=== PATIENT | male | born 1965 | race Caucasian/White ===

== ENCOUNTER 2018-09-14 10:06 | Outpatient (REF) | payer SELFPAY ==
[2018-09-14 12:26] LABS: Anion Gap 5.1 mmol/L (3-11); BUN 14 mg/dL (7-18); CO2 28.9 mmol/L (21.0-32.0); CREATININE 0.94 mg/dL (0.70-1.30); Calcium 9.1 mg/dL (8.5-10.1); Chloride 103 mmol/L (98-107); Cholesterol 235 mg/dL (50-200); Glucose 197 mg/dL (70-100); HDL Cholesterol 26 mg/dL (40-60); LDL CHOLESTEROL 194 mg/dL (<100); Potassium 4.7 mmol/L (3.5-5.1); Sodium 137 mmol/L (136-145); Triglyceride 131 mg/dL (30-150)
[2018-09-14 12:33] LABS: COMMENT (LAB VIEW ONLY) 265.91 mg/dL; Microalb ug/mg Crea 6.2 ug/mg Cr
== END 2018-09-14 10:26 ==
LOC: LBN 10:06
PROVIDERS: PCP Internal Medicine; Visit Provider Internal Medicine
DX: E78.00 Pure hypercholesterolemia, unspecified (principal); I10 Essential (primary) hypertension; E11.9 Type 2 diabetes mellitus without complications
CPT/HCPCS: 80048; 80061; 83721; 82043; 82570

== ENCOUNTER 2020-01-24 03:49 | Outpatient (CLI) | payer SELFPAY ==
[2020-01-24 07:35] LABS: Hemoglobin A1C 9.8 % (3.8-5.6)
[2020-01-24 09:01] LABS: ALT 33 U/L (16-63); AST 12 U/L (15-37); Albumin 3.9 g/dL (3.4-5.0); Alkaline Phosphatase 152 U/L (46-116); Anion Gap 11.2 mmol/L (3-11); BUN 13 mg/dL (7-18); CO2 23.8 mmol/L (21.0-32.0); CREATININE 0.81 mg/dL (0.70-1.30); Calcium 9.2 mg/dL (8.5-10.1); Calculated LDL 146 mg/dL (<100); Chloride 101 mmol/L (98-107); Cholesterol 252 mg/dL (<200); Glucose 331 mg/dL (74-106); HDL Cholesterol 27 mg/dL (40-60); Potassium 4.4 mmol/L (3.5-5.1); Sodium 136 mmol/L (136-145); Total Protein 7.4 g/dL (6.4-8.2); Triglyceride 398 mg/dL (<150)
[2020-01-24 09:12] LABS: COMMENT (LAB VIEW ONLY) 134.98 mg/dL; Microalb ug/mg Crea 8.3 ug/mg Cr
== END 2020-01-24 04:09 ==
PROVIDERS: PCP Nurse Practitioner; Visit Provider Nurse Practitioner
DX: E11.9 Type 2 diabetes mellitus without complications (principal); E78.00 Pure hypercholesterolemia, unspecified
CPT/HCPCS: 36415; 80053; 80061; 82043; 82570; 83036

== ENCOUNTER 2020-10-29 21:29 | Outpatient (REF) | payer MEDICAID, SELFPAY ==
[2020-11-02 18:57] LABS: COVID-19 RT-PCR Result NEGATIVE (Negative)
== END 2020-10-29 21:49 ==
LOC: NCHCN 21:29
PROVIDERS: PCP Nurse Practitioner; Visit Provider Physician Assistant
DX: J02.9 Acute pharyngitis, unspecified (principal); Z11.59 Encounter for screening for other viral diseases
CPT/HCPCS: U0003; 87070

== ENCOUNTER 2021-04-01 16:12 | Outpatient (REF) | payer MEDICAID, SELFPAY ==
[2021-04-03 16:07] LABS: COVID-19 RT-PCR UVMMC Result Negative (Negative)
== END 2021-04-01 16:13 | disposition home or self-care (01) ==
LOC: LBN 16:12
PROVIDERS: PCP Nurse Practitioner; Visit Provider Physician Assistant
DX: Z20.822 Contact with and (suspected) exposure to COVID-19 (principal)
CPT/HCPCS: U0003

== ENCOUNTER 2021-04-02 21:56 | Outpatient (CLI) | payer MEDICAID, SELFPAY ==
--- NOTE | 2021-04-02 09:15 | DI.RAD_ITS ---
Exam(s) XR CHEST 2V PA LATERAL EXAM: XR CHEST 2V PA LATERAL CLINICAL HISTORY: cough, r/o pneumonia, R05 TECHNIQUE: 2D digital imaging was performed. COMPARISON: No exams were available for comparison FINDINGS: The heart is not enlarged. The lungs are clear and well expanded. No pleural effusion seen. Mediastin al contours appear intact. IMPRESSION: Normal chest. RADIATION DOSE DELIVERED: Total DLP
== END 2021-04-02 22:16 ==
PROVIDERS: PCP Nurse Practitioner; Visit Provider Physician Assistant
DX: R05 Cough (principal)
CPT/HCPCS: 71046

== ENCOUNTER 2021-09-12 16:07 | Outpatient (REF) | payer MEDICAID, SELFPAY ==
[2021-09-12 18:03] LABS: ALT 34 U/L (16-63); AST 13 U/L (15-37); Albumin 3.7 g/dL (3.4-5.0); Alkaline Phosphatase 134 U/L (46-116); Anion Gap 10.5 mmol/L (3-11); BUN 10 mg/dL (7-18); CO2 25.5 mmol/L (21.0-32.0); CREATININE 0.8 mg/dL (0.70-1.30); Calcium 9.1 mg/dL (8.5-10.1); Calculated LDL 182 mg/dL (<100); Chloride 102 mmol/L (98-107); Cholesterol 255 mg/dL (<200); Glucose 225 mg/dL (74-106); HDL Cholesterol 32 mg/dL (40-60); Potassium 4.5 mmol/L (3.5-5.1); Sodium 138 mmol/L (136-145); Total Protein 7.3 g/dL (6.4-8.2); Triglyceride 205 mg/dL (<150)
[2021-09-12 18:08] LABS: Bilirubin Negative (Negative); Blood Negative (Negative); COMMENT (LAB VIEW ONLY) 154.14 mg/dL; Clarity Clear (Clear); Glucose >=1000 mg/dL (Negative); HCT 46.9 % (40.0-50.0); Ketones Negative (Negative); Leukocyte Esterase Negative (Negative); MCH 29.8 pg (27.0-33.0); MCHC 34.1 % (32.0-36.0); MCV 87.3 fL (80-95); Nitrite Negative (Negative); Platelet Count 266 10^3/uL (130-400); RBC 5.37 10^6/uL (4.36-5.78); RDW 12.2 % (11.8-14.1); RDW-SD 38.9 fL; Specific Gravity >= 1.030 (1.005-1.025); Urobilinogen 0.2 EU/dL (Up TO 0.2); WBC 11.64 10^3/uL (4.4-10.8); pH 5.5 (5-8)
== END 2021-09-12 16:08 | disposition home or self-care (01) ==
LOC: LBN 16:07
PROVIDERS: PCP Nurse Practitioner; Visit Provider Nurse Practitioner
DX: E11.65 Type 2 diabetes mellitus with hyperglycemia (principal); E78.00 Pure hypercholesterolemia, unspecified
CPT/HCPCS: 80053; 80061; 85027; 81003; 82043; 82570

== ENCOUNTER 2021-10-18 19:34 | Emergency (ER) | payer MEDICAID, SELFPAY ==
[2021-10-18] VITALS (27 sets, daily range): BP systolic 105–127; BP diastolic 59–108; PULSE 79–128; RESP 16–29; TEMP 36.9–38.2; O2SAT 91–100
--- NOTE | 2021-10-18 19:30 | RT.EKG_ITS ---
APPROVED REPORT Exam: Resting ECG Reason for Exam: chest pain Patient Location: E HR:108 bpm ECG Measurements Heart Rate 108 AXIS VA 144 P 59 QRSd 75 QRS 50 QT 312 T 34 QTc 418 Conclusion Sinus tachycardia...rate> [address] depression, diffuse leads...ST <-0.03mV, ant/lat/inf
--- NOTE | 2021-10-18 20:00 | DI.CT_ITS ---
Exam(s) CT CHEST PE CTA EXAM: CT CHEST PE CTA CLINICAL HISTORY: shortness of breath covid. TECHNIQUE: Imaging Protocol: CT angiography of the chest was performed using pulmonary embolus alexis col. Multi planar reconstructions were performed. CONTRAST MATERIAL: Intravenous: Omnipaque 350 Contrast volume: 99 cc COMPARISON: No exams were available for comparison FINDINGS: CHEST: PULMONARY ARTERIES: There are no intraluminal filling defects to suggest acute pulmonary emboli. LUNGS: Multilevel bilateral filtrates, not associated with pleural effusions. All lobes involved. T here are no pleural effusions. MEDIASTINUM: There is mild hilar and subcarinal adenopathy. No axillary adenopathy. Visualized thyr oid unremarkable. CARDIAC: Heart size is upper normal. There is no pericardial effusion.Caliber of the thoracic aorta is within normal limits. Some coronary artery calcification is noted. There is no significant shift of the interventricular septum. PARTIALLY VISUALIZED UPPERMOST ABDOMEN: No obvious findings OSSEOUS: No significant osseous lesions.. IMPRESSION: 1. Bilateral multilevel patchy infiltrates involving all lobes of both lungs..No pleural effusions. Recommend testing for Covid-19 2. Mild bilateral hilar and subcarinal adenopathy noted 3. No significant osseous findings. RADIATION DOSE DELIVERED: 585.85mGy.cm Total DLP DATA REPOSITORY: All CT scans at this facility are submitted to the National Radiology Data Registry (NRDR) Dose Index Registry (DIR) with the [employer] ([employer]). RADIATION OPTIMIZATION: All CT scans at this facility use at least one of these dose optimization te chniques: automated exposure control; mA and/or kV adjustment per patient size (includes targeted exa ms where dose is matched to clinical indication); or iterative reconstruction.
[2021-10-18] MEDS: Acetaminophen 500 MG TAB 1000 MG PO (20:37)
[2021-10-18] MEDS: Dexamethasone 10 MG/ML VIAL IVP (20:37)
[2021-10-18] MEDS: Albuterol/Ipratropium 3 ML UPD VIAL UPD (20:37)
[2021-10-18 20:48] LABS: Source Nasal/Nares
[2021-10-18 20:53] LABS: Lipase 53 U/L (73-393)
[2021-10-18 20:53] LABS: Lactate 2.1 mmol/L (0.6-1.4)
[2021-10-18 20:56] LABS: ALT 54 U/L (16-63); AST 29 U/L (15-37); Albumin 2.9 g/dL (3.4-5.0); Alkaline Phosphatase 94 U/L (46-116); Anion Gap 10.5 mmol/L (3-11); BUN 9 mg/dL (7-18); Bilirubin, Total 1.5 mg/dL (0.2-1.0); CO2 25.5 mmol/L (21.0-32.0); CREATININE 0.9 mg/dL (0.70-1.30); Calcium 8.9 mg/dL (8.5-10.1); Chloride 97 mmol/L (98-107); Glucose 281 mg/dL (74-106); Potassium 3.5 mmol/L (3.5-5.1); Sodium 133 mmol/L (136-145); Total Protein 7.6 g/dL (6.4-8.2)
[2021-10-18 21:06] LABS: C-Reactive Protein 8.28 mg/dL (0.0-0.3); NT-proBNP 272 pg/mL (<300)
[2021-10-18 21:07] LABS: Troponin I < 0.05 ng/mL (<0.06)
[2021-10-18 21:15] LABS: Abs Immature Grans 0.22 10^3/uL (0.0-0.06); Absolute Basophil Count 0.06 10^3/uL (0.0-0.2); Absolute Eosinophil Count 0.09 10^3/uL (0.0-0.7); Absolute Lymphocyte Count 2.51 10^3/uL (1.2-3.4); Absolute Neutrophil Count 14.45 10^3/uL (1.2-6.7); Basophils % 0.3; Eosinophils % 0.5; HCT 41.9 % (40.0-50.0); HGB 15.4 g/dL (13.5-17.5); Immature Grans % 1.2; Lymphocytes % 13.6; MCH 32.5 pg (27.0-33.0); MCHC 36.8 % (32.0-36.0); MCV 88.4 fL (80-95); MPV 11.2 fL (8.0-11.0); Neutrophils % 78.4; Nucleated RBC 0 %; Platelet Count 389 10^3/uL (130-400); RBC 4.74 10^6/uL (4.36-5.78); RDW 12.9 % (11.8-14.1); RDW-SD 37.7 fL; WBC 18.43 10^3/uL (4.4-10.8)
[2021-10-18 21:16] LABS: Absolute Monocyte Count 1.11 10^3/uL (0.1-0.8)
--- NOTE | 2021-10-18 21:29 | W.ED.GENAD ---
Discharge Plan Disposition Patient Disposition: AGAINST MEDICAL ADVICE Condition: Serious Discharge Details Clinical Impression: Pneumonia, Sepsis Primary Care Provider: Rashida Ghosh ED Provider: Kait Gomez Home Meds and New Rx's Prescriptions: New levofloxacin 750 mg tablet 750 mg PO DAILY Qty: 5 RF: 0 prednisone 20 mg tablet 60 mg PO DAILY Qty: 15 RF: 0 Continued glimepiride 4 mg tablet 4 mg PO BID Qty: 180 RF: 3 rosuvastatin 40 mg tablet 40 mg PO DAILY Qty: 90 RF: 3 Januvia 50 mg tablet 50 mg PO DAILY Qty: 90 RF: 0 albuterol sulfate [Proventil HFA] 90 mcg/actuation HFA aerosol inhaler 2 puff inhalation QID PRN (Reason: shortness of breath or wheezing) Qty: 8.5 RF: 0 aspirin [Ecotrin Low Strength] 81 MG tablet,delayed release (DR/EC) 81 mg PO HS RF: 0 Discharge Instructions Instructions: Pneumonia (ED) Additional Instructions: You are leaving against our medical recommendation, you understand that you are risk for further deterioration and even Start taking Levaquin tomorrow, the prescription will be at your pharmacy, start taking the prednisone tomorrow, this prescription will be at your pharmacy Use the Combivent inhaler that we supply you in the emergency room 1 puff every 6 hours Is recommended that you are reevaluated on your earliest ability Referrals: Rashida Ghosh, [employer] ASSOCIATE [Primary Care Provider] - Discharge Data Discharge Date/Time-TO BE ENTERED AT DEPARTURE: 10/18/21 22:52 Medical Decision Making Patient with criteria, his exam leukocytosis, lactic acidosis with multifocal pneumonia is concerning The recommendation is for admission, received IV antibiotics, steroids, inhalers, patient is very dyspneic with any sort of exertion and weak on exam He is alert, oriented, of decisional capacity, he is now agreeable to stay in the hospital is leaving AGAINST MEDICAL ADVICE, I discussed the risk associated Has Covid swab is negative, is been 17 days since he was initially diagnosed. He is aware that he is leaving AGAINST MEDICAL ADVICE He is aware that he must follow-up at his earliest ability with his primary care physician placed on Levaquin, steroids, and inhalers for home Specifically given Combivent inhaler His is aware that we are very concerned regarding his condition at time of discharge home she agrees to monitor him closely Medical Records Medical records reviewed: Yes I reviewed the patient's medical records. Lab Data Lab results reviewed: Yes I reviewed the patient's lab results. HPI General Mode of arrival: ambulatory. Date/Time Provider Initiated Documentation: 10/18/21 19:39. Limitations to Documentation: no limitations. Information obtained by: patient. HPI Narrative: This 56-year-old male presents with report of shortness of breath, fever at home, Covid 3 weeks ago. Has been feeling weak reportedly. Has productive cough. Denies any nausea or vomiting. Denies any chest discomfort. Denies any urinary complaints. Is not Covid vaccinated. Shortness of breath predominantly with exertion. Denies any abdominal pain. Denies any rashes or lesions. Related Data Home Medications Medication Instructions Recorded Confirmed aspirin [Ecotrin Low Strength] 81 mg PO HS tab-cap 03/10/13 10/18/21 albuterol sulfate 90 mcg/actuation 2 puff INHALATION QID PRN #8.5 g 04/01/21 10/18/21 aerosol inhaler glimepiride 4 mg tablet 4 mg PO BID #180 tab-cap 09/12/21 10/18/21 rosuvastatin 40 mg tablet 40 mg PO DAILY #90 tab 09/12/21 10/18/21 sitagliptin 50 mg tablet 50 mg PO DAILY #90 tab 09/12/21 10/18/21 levofloxacin 750 mg PO DAILY #5 tab 10/18/21 prednisone 60 mg PO DAILY #15 tab 10/18/21 Previous Rx's Medication Instructions Recorded albuterol sulfate 90 mcg/actuation 2 puff INHALATION QID PRN #8.5 g 04/01/21 aerosol inhaler glimepiride 4 mg tablet 4 mg PO BID #180 tab-cap 09/12/21 rosuvastatin 40 mg tablet 40 mg PO DAILY #90 tab 09/12/21 sitagliptin 50 mg tablet 50 mg PO DAILY #90 tab 09/12/21 levofloxacin 750 mg PO DAILY #5 tab 10/18/21 prednisone 60 mg PO DAILY #15 tab 10/18/21 Allergies Allergy/AdvReac Type Severity Reaction Status Date / Time metformin AdvReac Intermediate Diarrhea Verified 10/18/21 20:08 General Stated Complaint: SOB FUAD: 2 Review of Systems All systems reviewed & are unremarkable except as noted in HPI and below PFSH Medical History Colonoscopy refused Lung cancer screening declined by patient Uncontrolled diabetes mellitus Surgical History Vasectomy Family History Mother Essential hypertension Father Alcohol abuse Social History Smoking/Tobacco Use Status: Current every day Tobacco Type: cigarettes Smoking packs per day: 1 Smoking cigarettes per day: 20.0 Years smoked: 45 Smoking pack-years: 45.00 Smoking risk assessment performed?: Yes Alcohol Intake: former Year quit: 1997 Substance use type: does not use Household members: spouse Housing: house Number of Children: 2 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 Do you feel safe at home: Yes Do you feel safe in your relationship?: Yes Additional Social history: hasn't smoked in 2 weeks Exam Const General: cooperative, comfortable and no acute distress HENMT Head: normal to inspection Eyes Pupils: PERRL Chest Chest: normal inspection of the chest Resp Other: Tachypnea, diminished Cardio Rate: regular rate Rhythm: regular rhythm GI Inspection: normal to inspection Other: Nontender abdominal exam Skin General skin exam: no rashes or lesions noted Neuro General: patient alert and patient oriented x3 Speech: speech normal Course Vital Signs Vital signs: Vital Signs Temperature 36.9 C 10/18/21 19:45 Pulse 110 H 10/18/21 19:45 Respiratory Rate 16 10/18/21 19:45 Blood Pressure 126/74 10/18/21 19:45 Pulse Oximetry 97 10/18/21 19:45 Temperature 38.2 C H 10/18/21 20:06 Temperature Source Oral 10/18/21 20:06 Pulse 110 H 10/18/21 19:45 Respiratory Rate 24 10/18/21 19:56 Respiratory Effort Incrsd Work of Breathing 10/18/21 20:01 Blood Pressure 126/74 10/18/21 19:45 Pulse Oximetry 97 10/18/21 19:45 Oxygen Delivery Method Room Air 10/18/21 19:45 Oxygen Flow Rate 0 10/18/21 19:45 Pain Level 0 10/18/21 19:45 Lab/Test Results Lab/Test Results: Laboratory Tests Range/Units 10/18/21 10/18/21 10/18/21 19:55 19:55 19:55 WBC (4.4-10.8) 10^3/uL 18.43 H RBC (4.36-5.78) 10^6/uL 4.74 Hgb (13.5-17.5) g/dL 15.4 Hct (40.0-50.0) % 41.9 MCV (80-95) fL 88.4 MCH (27.0-33.0) pg 32.5 MCHC (32.0-36.0) % 36.8 H RDW (11.8-14.1) % 12.9 Plt Count (130-400) 10^3/uL 389 MPV (8.0-11.0) fL 11.2 H Immature Gran % 1.2 Neutrophils % 78.4 Lymphocytes % 13.6 Monocytes % 6.0 Eosinophils % 0.5 Basophils % 0.3 Nucleated RBC % % 0 Absolute Neutrophils (1.2-6.7) 10^3/uL 14.45 H Absolute Lymphocytes (1.2-3.4) 10^3/uL 2.51 Absolute Monocytes (0.1-0.8) 10^3/uL 1.11 H Absolute Eosinophils (0.0-0.7) 10^3/uL 0.09 Absolute Basophils (0.0-0.2) 10^3/uL 0.06 VBG Lactate (0.6-1.4) mmol/L Sodium (136-145) mmol/L 133 L Potassium (3.5-5.1) mmol/L 3.5 Chloride (98-107) mmol/L 97 L Carbon Dioxide (21.0-32.0) mmol/L 25.5 Anion Gap (3-11) mmol/L 10.5 BUN (7-18) mg/dL 9 Creatinine (0.70-1.30) mg/dL 0.9 Estimated GFR/1.73 m2 (mL/min/1.73m2) >= 60.00 Glucose (74-106) mg/dL 281 H Calcium (8.5-10.1) mg/dL 8.9 Total Bilirubin (0.2-1.0) mg/dL 1.5 H AST (15-37) U/L 29 ALT (16-63) U/L 54 Alkaline Phosphatase (46-116) U/L 94 Troponin I (<0.06) ng/mL < 0.05 C-Reactive Protein (0.0-0.3) mg/dL 8.28 H NT-Pro-B Natriuret Pep (<300) pg/mL 272 Total Protein (6.4-8.2) g/dL 7.6 Albumin (3.4-5.0) g/dL 2.9 L Lipase (73-393) U/L COVID-19 Source Range/Units 10/18/21 10/18/21 10/18/21 19:55 20:43 20:45 WBC (4.4-10.8) 10^3/uL RBC (4.36-5.78) 10^6/uL Hgb (13.5-17.5) g/dL Hct (40.0-50.0) % MCV (80-95) fL MCH (27.0-33.0) pg MCHC (32.0-36.0) % RDW (11.8-14.1) % Plt Count (130-400) 10^3/uL MPV (8.0-11.0) fL Immature Gran % Neutrophils % Lymphocytes % Monocytes % Eosinophils % Basophils % Nucleated RBC % % Absolute Neutrophils (1.2-6.7) 10^3/uL Absolute Lymphocytes (1.2-3.4) 10^3/uL Absolute Monocytes (0.1-0.8) 10^3/uL Absolute Eosinophils (0.0-0.7) 10^3/uL Absolute Basophils (0.0-0.2) 10^3/uL VBG Lactate (0.6-1.4) mmol/L 2.1 H Sodium (136-145) mmol/L Potassium (3.5-5.1) mmol/L Chloride (98-107) mmol/L Carbon Dioxide (21.0-32.0) mmol/L Anion Gap (3-11) mmol/L BUN (7-18) mg/dL Creatinine (0.70-1.30) mg/dL Estimated GFR/1.73 m2 (mL/min/1.73m2) Glucose (74-106) mg/dL Calcium (8.5-10.1) mg/dL Total Bilirubin (0.2-1.0) mg/dL AST (15-37) U/L ALT (16-63) U/L Alkaline Phosphatase (46-116) U/L Troponin I (<0.06) ng/mL C-Reactive Protein (0.0-0.3) mg/dL NT-Pro-B Natriuret Pep (<300) pg/mL Total Protein (6.4-8.2) g/dL Albumin (3.4-5.0) g/dL Lipase (73-393) U/L 53 COVID-19 Source Nasal/Nares Critical Care Time Critical Care Time Critical Care Time: Yes Total Critical Care Time: 45 Attestation: IV antibiotics, IV fluid resuscitation, IV steroids, nebulizer treatment, telemetry monitoring
[2021-10-18 21:42] LABS: COVID-19 PCR Negative (Negative)
[2021-10-18] MEDS: Omnipaque 350 MG/ML 100 ML BTL IJ (21:51)
[2021-10-18] MEDS: Normal Saline Flush 10 ML SYR IVP (21:52)
[2021-10-18] MEDS: Doxycycline Hyclate 100 MG CAP PO (22:01)
[2021-10-18] MEDS: cefTRIAXone 2 GM/50 ML BAG IVPB (22:01)
[2021-10-18 22:17] LABS: Procalcitonin < 0.1 ng/mL
--- NOTE | 2021-10-18 22:20 | DI.VRAD_ITS ---
PROCEDURE INFORMATION: Exam: CTA Chest With Contrast Exam date and time: 10/18/2021 8:24 PM Age: 56 years old Clinical indication: Other: SOB TECHNIQUE: Imaging protocol: Computed tomographic angiography of the chest with contrast. 3D rendering (Not supervised by radiologist): MIP and/or 3D reconstructed images were created by the technologist. Radiation optimization: All CT scans at this facility use at least one of these dose optimization techniques: automated exposure control; mA and/or kV adjustment per patient size (includes targeted exams where dose is matched to clinical indication); or iterative reconstruction. Contrast material: OMNIPAQUE 350; Contrast volume: 100 ml; Contrast route: INTRAVENOUS (IV); COMPARISON: CR XR CHEST 2V PA LATERAL 04/02/2021 2:19 PM FINDINGS: Pulmonary arteries: Normal. No pulmonary emboli. Aorta: Unremarkable. No aortic aneurysm. No aortic dissection. Lungs: Patchy nonspecific bilateral pulmonary infiltrate possibly of atypical infectious etiology. Pleural spaces: Unremarkable. No pneumothorax. No pleural effusion. Heart: Unremarkable. No cardiomegaly. No pericardial effusion. Lymph nodes: Unremarkable. No enlarged lymph nodes. Liver: Hepatic steatosis. Bones/joints: Unremarkable. No acute fracture. Soft tissues: Unremarkable. IMPRESSION: Patchy nonspecific bilateral pulmonary infiltrate possibly of atypical infectious etiology. Dictated and Authenticated by: Robbie Marcano MD. Ordering:PARRIS Carballo MD
[2021-10-18] MEDS: Ipratropium/Albuterol 4 GM 120 PUFF INH IH (22:52)
[2021-10-18 23:02] LABS: Bilirubin Negative (Negative); Blood Trace-intact (Negative); Clarity Clear (Clear); Glucose 500 mg/dL (Negative); Ketones Negative (Negative); Leukocyte Esterase Negative (Negative); Nitrite Negative (Negative); Specific Gravity <= 1.005 (1.005-1.025); Urobilinogen 0.2 EU/dL (Up TO 0.2); pH 6.5 (5-8)
[2021-10-18 23:09] LABS: Bacteria Rare HPF (Negative); Crystals Negative HPF (Negative); Epithelial Cells Negative HPF (Negative); Mucus Negative (Negative); WBC 0-2 HPF (0-5)
[2021-10-18 23:10] LABS: C & S Indicated? No; Casts Negative LPF (Negative)
== END 2021-10-18 22:52 | disposition left against medical advice (07) ==
PROVIDERS: Emergency Provider Physician Assistant; PCP Nurse Practitioner
DX: A41.9 Sepsis, unspecified organism (principal); J18.9 Pneumonia, unspecified organism; Z53.29 Procedure and treatment not carried out because of patient's decision for other reasons; Z86.16 Personal history of COVID-19
CPT/HCPCS: 36415; 71275; 80053; 83690; 84145; 87635; 93005; 94640; 99291; 81003; 81015; 83605; 83880; 84484; 85025; 86140; 93010; J1100; J3490; J7620

== ENCOUNTER 2021-10-21 14:14 | Emergency (ER) | payer MEDICAID, SELFPAY ==
[2021-10-21 14:26] VITALS: BP 151/81; PULSE 77; RESP 18; TEMP 36.3; O2SAT 94
--- NOTE | 2021-10-21 14:30 | RT.EKG_ITS ---
APPROVED REPORT Exam: Resting ECG Reason for Exam: sob Patient Location: E HR:84 bpm ECG Measurements Heart Rate 84 AXIS NE 143 P 42 QRSd 79 QRS 47 QT 376 T 16 QTc 444 Conclusion Sinus rhythm...normal P axis, V-rate 60- 99. Sinus. No STEMI. I have reviewed and interpreted ECG and agree with software generated interpretation.
--- NOTE | 2021-10-21 14:32 | ED.GENADUL_ITS ---
Discharge Plan Disposition Patient Disposition: AGAINST MEDICAL ADVICE Condition: Serious Discharge Details Clinical Impression: Pneumonia, Cellulitis of buttock, right, High serum lactate Primary Care Provider: Rashida Ghosh ED Provider: Edinson Sandoval Home Meds and New Rx's Prescriptions: New doxycycline hyclate 100 mg capsule 100 mg PO BID Qty: 20 RF: 0 Continued glimepiride 4 mg tablet 4 mg PO BID Qty: 180 RF: 3 rosuvastatin 40 mg tablet 40 mg PO DAILY Qty: 90 RF: 3 Januvia 50 mg tablet 50 mg PO DAILY Qty: 90 RF: 0 albuterol sulfate [Proventil HFA] 90 mcg/actuation HFA aerosol inhaler 2 puff inhalation QID PRN (Reason: shortness of breath or wheezing) Qty: 8.5 RF: 0 aspirin [Ecotrin Low Strength] 81 MG tablet,delayed release (DR/EC) 81 mg PO HS RF: 0 levofloxacin 750 mg tablet 750 mg PO DAILY Qty: 5 RF: 0 prednisone 20 mg tablet 60 mg PO DAILY Qty: 15 RF: 0 Discharge Instructions Instructions: Cellulitis (ED), Pneumonia (ED) Additional Instructions: Admission was once again recommended for this visit and you have declined, decided to leave AGAINST MEDICAL ADVICE. Levaquin, prednisone, doxycycline as directed. Warm sitz baths as tolerated. Please watch for new or worsening symptoms and return to the ER for any concerns. Otherwise I strongly recommend you contact your primary care provider tomorrow to make them aware of your ER visit, decision to leave AGAINST MEDICAL ADVICE, and need for outpatient reevaluation. Medical Decision Making 56-year-old gentleman, past medical history of diabetes, presents after leaving [facility] on the , taking his Levaquin and prednisone reporting his symptoms are not really improving and he now has an infection to his left buttocks. Patient is requesting IV antibiotics and will allow a medical work-up but is very adamant that he will not be admitted. Will obtain IV access, give IV fluid and initiate a septic work-up. He is afebrile, O2 sats are 94% on room air, pulse of 77, blood pressure 151/81. White blood cell count of 17.7 which is actually slightly improved from his most ER visit. Lactate is 3.5, creatinine 0.9 GFR of greater than 60. Troponin is less than 0.05. Chest x-ray revealed pneumonia. At this time patient with leukocytosis, elevated lactate, 2 separate sources of infection, recommend admission. Patient has cellulitis to his buttocks but this is not anal or perianal cellulitis. No evidence of abscess, no indication for I&D. Will provide the patient with a second liter of IV fluid and initiate a dose of IV doxycycline which should give additional coverage for atypical pneumonia as well as his cellulitis. Patient is agreeable to this but declines admission. Patient appears clinically sober, is of sound mind, and based upon my clinical examination has the capacity to make their own decisions. We have offered treatment options and discussed the the risks and benefits of these options and refusing these options, including and/or disability specific to the patient's pathology. Pt is able to discuss and understands the risks and benefits and alternatives of treatment and refusing treatment. We have tried to involve the patient's on the phone and she is aware of the patient is leaving AMA. The patient still chooses to leave before evaluation and treatment can be completed AGAINST MEDICAL ADVICE. Strict discharge and return precautions provided. Patient placed on the care management list to help expedite outpatient primary care follow-up as he has now left AMA twice in 3 days This documentation was generated using [employer] dictation system, please disregard any oddities of phrase or misspellings. Medical Records Medical records reviewed: Yes I reviewed the patient's medical records. Imaging Data Radiologic Study: Attestation: I personally reviewed and interpreted this imaging study as follows: Imaging: X-Ray Radiologist's impression: Exam(s) XR PORTABLE CHEST AP EXAM: XR PORTABLE CHEST AP CLINICAL HISTORY: recent pneumonia, not better. TECHNIQUE: 2D digital imaging was performed. COMPARISON: CR XR CHEST 2V PA LATERAL from 04/02/2021 FINDINGS: Heart size is upper normal. Chest leads in place. The mediastinum is not widened. Tenting of the right hemidiaphragm is unchanged. No new right lung findings. However, there is some patchy infiltrate in the left upper lobe now evident. No pleural effusions. IMPRESSION: Left upper lobe infiltrate. No pleural effusions. Lab Data Lab results reviewed: Yes I reviewed the patient's lab results. Labs: 10/21/21 15:30 Blood Blood Culture - Pending 10/21/21 15:10 Blood Blood Culture - Pending Laboratory Tests Range/Units 10/21/21 10/21/21 10/21/21 15:30 15:30 15:30 WBC (4.4-10.8) 10^3/uL 17.87 H RBC (4.36-5.78) 10^6/uL 5.12 Hgb (13.5-17.5) g/dL 15.6 Hct (40.0-50.0) % 44.5 MCV (80-95) fL 86.9 MCH (27.0-33.0) pg 30.5 MCHC (32.0-36.0) % 35.1 RDW (11.8-14.1) % 12.1 Plt Count (130-400) 10^3/uL 494 H MPV (8.0-11.0) fL 10.9 Immature Gran % 1.0 Neutrophils % 84.4 Lymphocytes % 7.9 Monocytes % 6.4 Eosinophils % 0.1 Basophils % 0.2 Nucleated RBC % % 0 Absolute Neutrophils (1.2-6.7) 10^3/uL 15.08 H Absolute Lymphocytes (1.2-3.4) 10^3/uL 1.41 Absolute Monocytes (0.1-0.8) 10^3/uL 1.14 H Absolute Eosinophils (0.0-0.7) 10^3/uL 0.02 Absolute Basophils (0.0-0.2) 10^3/uL 0.04 VBG Lactate (0.6-1.4) mmol/L 3.5 H* Sodium (136-145) mmol/L 134 L Potassium (3.5-5.1) mmol/L 4.1 Chloride (98-107) mmol/L 100 Carbon Dioxide (21.0-32.0) mmol/L 22.8 Anion Gap (3-11) mmol/L 11.2 H BUN (7-18) mg/dL 19 H D Creatinine (0.70-1.30) mg/dL 0.9 Estimated GFR/1.73 m2 (mL/min/1.73m2) >= 60.00 Glucose (74-106) mg/dL 361 H Calcium (8.5-10.1) mg/dL 8.9 Magnesium (1.8-2.4) mg/dL 2.0 Total Bilirubin (0.2-1.0) mg/dL 1.1 H AST (15-37) U/L 37 ALT (16-63) U/L 72 H Alkaline Phosphatase (46-116) U/L 90 Troponin I (<0.06) ng/mL < 0.05 Total Protein (6.4-8.2) g/dL 7.4 Albumin (3.4-5.0) g/dL 2.6 L ECG Data Attestation: I personally reviewed and interpreted this ECG (s) as follows: Interpretation: Sinus rhythm, ventricular rate is 84. No STEMI. HPI General Mode of arrival: ambulatory . Date/Time Provider Initiated Documentation: 10/21/21 14:16 . Limitations to Documentation: no limitations . Information obtained by: patient . HPI Narrative: This is a 56-year-old gentleman, had Covid 3 weeks ago, past medical history that includes diabetes, who left our ER just 3 days ago AMA after being diagnosed with pneumonia and sepsis, presenting to the ER today reporting that he is taking his medications a s directed but not really feeling any better, also now has an infection on his right buttock that has been present for the past several days but feels as though it is getting slightly better after taking Levaquin for the past few days. Fever at home 100.8. Reports dry cough and mild shortness of breath. Denies any headache, chest pain, abdominal pain, nausea, vomiting, skin rash elsewhere other than his buttocks. Patient spoke with his and spoke with his primary care office recommended he come back to the ER. Patient is agreeable to receiving IV antibiotics but tells me that he will not be admitted and will leave AMA once again. Patient states that he has had similar infections to his buttocks and under his pannus, this wound is not draining, and he states he feels as though it has not come to a head and cannot be drained yet. Related Data Home Medications Medication Instructions Recorded Confirmed aspirin [Ecotrin Low Strength] 81 mg PO HS tab-cap 03/10/13 10/21/21 albuterol sulfate 90 mcg/actuation 2 puff INHALATION QID PRN #8.5 g 04/01/21 10/21/21 aerosol inhaler glimepiride 4 mg tablet 4 mg PO BID #180 tab-cap 09/12/21 10/21/21 rosuvastatin 40 mg tablet 40 mg PO DAILY #90 tab 09/12/21 10/21/21 sitagliptin 50 mg tablet 50 mg PO DAILY #90 tab 09/12/21 10/21/21 levofloxacin 750 mg PO DAILY #5 tab 10/18/21 10/21/21 prednisone 60 mg PO DAILY #15 tab 10/18/21 10/21/21 doxycycline hyclate 100 mg PO BID #20 cap 10/21/21 Previous Rx's Medication Instructions Recorded albuterol sulfate 90 mcg/actuation 2 puff INHALATION QID PRN #8.5 g 04/01/21 aerosol inhaler glimepiride 4 mg tablet 4 mg PO BID #180 tab-cap 09/12/21 rosuvastatin 40 mg tablet 40 mg PO DAILY #90 tab 09/12/21 sitagliptin 50 mg tablet 50 mg PO DAILY #90 tab 09/12/21 levofloxacin 750 mg PO DAILY #5 tab 10/18/21 prednisone 60 mg PO DAILY #15 tab 10/18/21 doxycycline hyclate 100 mg PO BID #20 cap 10/21/21 Allergies Allergy/AdvReac Type Severity Reaction Status Date / Time metformin AdvReac Intermediate Diarrhea Verified 10/21/21 14:30 General Stated Complaint: Fever FUAD: 3 Review of Systems Constitutional Constitutional: Denies fatigue and Reports fever(s) ENT Ears, Nose, Mouth, and Throat: Denies neck pain Cardiovascular Cardiovascular: Denies chest pain and Reports dyspnea Respiratory Respiratory: Reports cough and Reports dyspnea Gastrointestinal Gastrointestinal: Denies abdominal pain, Denies nausea and Denies vomiting Genitourinary Genitourinary: Denies dysuria Musculoskeletal Musculoskeletal: Denies back pain and Denies neck pain Integumentary/Breasts Skin/Breast: Reports erythema Endocrine Endocrine: Denies fatigue Hematologic/Lymphatic Hematologic/Lymphatic: Denies easy bleeding and Denies easy bruising FOR[facility]LY [facility], [facility] Active Problem List Pneumonia (Acute) Sepsis (Acute) Cellulitis of buttock, right (Acute) High serum lactate (Acute) Sore throat (viral) (Acute) Uncontrolled diabetes mellitus (Acute) Lung cancer screening declined by patient (Acute) Colonoscopy refused (Acute) Smoker (Acute 01/13/17) Pure hypercholesterolemia (Acute 10/21/12) Morbid obesity (Acute 04/13/13) [place] cardiac risk >20% in next 10 years (Acute 01/13/17) Former smoker (Acute 03/23/15) Essential hypertension (Acute 04/13/13) Diabetes mellitus (Acute 04/13/13) Surgical History Vasectomy Family History Mother Essential hypertension Father Alcohol abuse Social History Smoking/Tobacco Use Status: Current every day Tobacco Type: cigarettes Smoking packs per day: 1 Smoking cigarettes per day: 20.0 Years smoked: 45 Smoking pack- years: 45.00 Smoking risk assessment performed?: Yes Alcohol Intake: former Year quit: 1997 Substance use type: does not use Household members: spouse Housing: house Number of Children: 2 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 Do you feel safe at home: Yes Do you feel safe in your relationship?: Yes Additional Social history: hasn't smoked in 2 weeks Exam Const General: cooperative, comfortable and disheveled Orientation: alert, awake and oriented x3 HENMT Head: normal to inspection, normocephalic and atraumatic Face and sinus: normal facial exam Mouth: moist mucous membranes abnormal (dry) Throat: posterior oropharynx normal Eyes General: appearance normal, both eyes and all related structures Conjunctivae: conjunctivae normal Neck Neck: normal visual inspection, full ROM, no lymphadenopathy, no meningeal signs, trachea midline, supple and nontender Resp Effort & Inspection: able to speak in complete sentences, cough Quality of cough: dry (mild) and tachypneic (minimal) Auscultation: diminished lung sounds bilaterally in the lower lung grey Cardio Rate: regular rate Rhythm: regular rhythm GI Inspection: normal to inspection Palpation: soft and nontender Back/Spine/Pelvis Back: No back tenderness Skin Full body images: 1. Left buttock with warmth, erythema, tenderness. This does not extend to the anus. No evidence of drainage or fluctuance. No evidence of lymphangitic streaking. Neuro General: patient alert, patient awake, moves all extremities and no focal motor deficits Cognition: normal cognition Speech: speech normal Gait: normal gait Sensory Exam: no sensory deficits noted Extrem General: normal to inspection, full ROM, capillary refill normal, no pedal edema and no calf tenderness Psych Appearance: grossly normal Mental Status: mental status grossly normal Course Vital Signs Vital signs: Vital Signs Temperature 36.3 C L 10/21/21 14:26 Pulse 77 10/21/21 14:26 Respiratory Rate 18 10/21/21 14:26 Blood Pressure 151/81 H 10/21/21 14:26 Pulse Oximetry 94 10/21/21 14:26 Temperature 36.3 C L 10/21/21 14:26 Temperature Source Temporal Artery Scan 10/21/21 14:26 Pulse 77 10/21/21 14:26 Respiratory Rate 18 10/21/21 14:26 Respiratory Effort 10/21/21 14:31 Blood Pressure 151/81 H 10/21/21 14:26 Pulse Oximetry 94 10/21/21 14:26 Oxygen Delivery Method Room Air 10/21/21 14:26 Oxygen Flow Rate 0 10/21/21 14:26 Pain Level 5 10/21/21 14:26
--- NOTE | 2021-10-21 15:15 | DI.RAD_ITS ---
Exam(s) XR PORTABLE CHEST AP EXAM: XR PORTABLE CHEST AP CLINICAL HISTORY: recent pneumonia, not better. TECHNIQUE: 2D digital imaging was performed. COMPARISON: CR XR CHEST 2V PA LATERAL from 04/02/2021 FINDINGS: Heart size is upper normal. Chest leads in place. The mediastinum is not widened. Tenting of the right hemidiaphragm is unchanged. No new right lung findings. However, there is some patchy infiltrate in the left upper lobe now evident. No pleural effusions. IMPRESSION: Left upper lobe infiltrate. No pleural effusions. DATA REPOSITORY: RADIATION DOSE DELIVERED: All CT scans at this facility use at least one of these dose optimization techniques: automated exposure control; mA and/or kV adjustment per patient size (includes targeted e xams where dose is matched to clinical indication); or iterative reconstruction.
[2021-10-21 15:50] LABS: Lactate 3.5 mmol/L (0.6-1.4)
[2021-10-21 16:00] LABS: ALT 72 U/L (16-63); AST 37 U/L (15-37); Albumin 2.6 g/dL (3.4-5.0); Alkaline Phosphatase 90 U/L (46-116); Anion Gap 11.2 mmol/L (3-11); BUN 19 mg/dL (7-18); Bilirubin, Total 1.1 mg/dL (0.2-1.0); CO2 22.8 mmol/L (21.0-32.0); CREATININE 0.9 mg/dL (0.70-1.30); Calcium 8.9 mg/dL (8.5-10.1); Chloride 100 mmol/L (98-107); Glucose 361 mg/dL (74-106); Potassium 4.1 mmol/L (3.5-5.1); Sodium 134 mmol/L (136-145); Total Protein 7.4 g/dL (6.4-8.2)
[2021-10-21 16:11] LABS: Abs Immature Grans 0.18 10^3/uL (0.0-0.06); Absolute Basophil Count 0.04 10^3/uL (0.0-0.2); Absolute Eosinophil Count 0.02 10^3/uL (0.0-0.7); Absolute Lymphocyte Count 1.41 10^3/uL (1.2-3.4); Absolute Monocyte Count 1.14 10^3/uL (0.1-0.8); Absolute Neutrophil Count 15.08 10^3/uL (1.2-6.7); Basophils % 0.2; Eosinophils % 0.1; HCT 44.5 % (40.0-50.0); HGB 15.6 g/dL (13.5-17.5); Lymphocytes % 7.9; MCH 30.5 pg (27.0-33.0); MCV 86.9 fL (80-95); MPV 10.9 fL (8.0-11.0); Monocytes % 6.4; Neutrophils % 84.4; Nucleated RBC 0 %; Platelet Count 494 10^3/uL (130-400); RBC 5.12 10^6/uL (4.36-5.78); RDW 12.1 % (11.8-14.1); RDW-SD 38.3 fL; WBC 17.87 10^3/uL (4.4-10.8)
[2021-10-21 16:12] LABS: MCHC 35.1 % (32.0-36.0)
[2021-10-21 16:15] LABS: Troponin I < 0.05 ng/mL (<0.06)
[2021-10-21] MEDS: DOXYCYCLINE 100 MG in Normal Saline 100 ML IVPB (16:19)
[2021-10-21] MEDS: Normal Saline 1,000 ML 1000 ML IV ×2 (16:20→17:31)
[2021-10-21 19:05] VITALS: BP 145/82; PULSE 90; RESP 22; TEMP 36.5; O2SAT 97
--- NOTE | 2021-10-22 14:36 | NUR.NOTE ---
referral to cm to follow up with 2 ama's
== END 2021-10-21 19:19 | disposition left against medical advice (07) ==
PROVIDERS: Emergency Provider Physician Assistant; PCP Nurse Practitioner
DX: J18.8 Other pneumonia, unspecified organism (principal); L03.317 Cellulitis of buttock; Z74.2 Need for assistance at home and no other household member able to render care; Z53.29 Procedure and treatment not carried out because of patient's decision for other reasons
CPT/HCPCS: 36415; 80053; 87040; 87077; 93005; 96361; 96365; 99285; 71045; 83605; 83735; 84484; 85025; 93010

== ENCOUNTER 2021-10-23 14:35 | Emergency (ER) | payer MEDICAID, SELFPAY ==
[2021-10-23] VITALS (21 sets, daily range): BP systolic 116–158; BP diastolic 67–91; PULSE 69–97; RESP 13–25; TEMP 36.3–36.5; O2SAT 92–96
--- NOTE | 2021-10-23 15:15 | DI.CT_ITS ---
Exam(s) CT PELVIC W EXAM: CT PELVIC W CLINICAL HISTORY: Left buttock abscess. 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 Arterial megaly does not continue into the iliac arteries. There is athero sclerotic disease at the level of this aneurysm but no evidence of tight stenosis at the aortic bifur cation. There is no adenopathy around the aortic bifurcation nor along the iliac chains. There is no inguina l adenopathy. Urinary bladder not distended. Seminal vesicles unremarkable. Prostate is not enlarg ed. No evidence of appendicitis. No diverticulitis. There is a large collection of subcutaneous air seen medial left gluteal fold and posterior perineum same side extending into the ischial rectal fat. Also into the posterior aspect of the scrotum. No fluid levels therein but nevertheless representing infection-abscess. Osseous: No significant osseous lesions. No evidence of osteomyelitis. IMPRESSION: 1. 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 2. 3. RADIATION DOSE DELIVERED: 681.66mGy.cm Total DLP DATA REPOSITORY: All CT scans at this facility are submitted to the National Radiology Data Registry (NRDR) Dose Index Registry (DIR) with the [employer] ([employer]). RADIATION OPTIMIZATION: All CT scans at this facility use at least one of these dose optimization te chniques: automated exposure control; mA and/or kV adjustment per patient size (includes targeted exa ms where dose is matched to clinical indication); or iterative reconstruction.
--- NOTE | 2021-10-23 15:22 | W.ED.GENAD ---
Discharge Plan Disposition Patient Disposition: [facility] Condition: Serious Discharge Details Clinical Impression: Cellulitis of buttock, left, Cellulitis, perineum Primary Care Provider: Rashida Ghosh ED Provider: Edinson Sandoval Home Meds and New Rx's Prescriptions: No Action glimepiride 4 mg tablet 4 mg PO BID Qty: 180 RF: 3 rosuvastatin 40 mg tablet 40 mg PO DAILY Qty: 90 RF: 3 Januvia 50 mg tablet 50 mg PO DAILY Qty: 90 RF: 0 albuterol sulfate [Proventil HFA] 90 mcg/actuation HFA aerosol inhaler 2 puff inhalation QID PRN (Reason: shortness of breath or wheezing) Qty: 8.5 RF: 0 aspirin [Ecotrin Low Strength] 81 MG tablet,delayed release (DR/EC) 81 mg PO HS RF: 0 levofloxacin 750 mg tablet 750 mg PO DAILY Qty: 5 RF: 0 prednisone 20 mg tablet 60 mg PO DAILY Qty: 15 RF: 0 doxycycline hyclate 100 mg capsule 100 mg PO BID Qty: 20 RF: 0 Discharge Data Discharge Date/Time-TO BE ENTERED AT DEPARTURE: 10/23/21 19:05 Medical Decision Making <Jazlyn Neri - Last Filed: 10/26/21 16:19> 56-year-old male presents to the ER for the third time in the last week with chief complaint of left buttock cellulitis and draining abscess. Patient was diagnosed with pneumonia on 18 October and was prescribed Levaquin for 5 days and then left AMA, he then returned again to the ER approximately 48 hours ago and was noted to have a left buttock cellulitis, was prescribed doxycycline and once again left AMA. He presents today with a chief complaint of drainage from his left buttock which began last night. He has been taking the antibiotics and medications as prescribed. Exam he on initial exam he has brown moderate purulent foul-smelling drainage noted from left buttock. He does have a past medical history of pneumonia, strep, hypertension, diabetes mellitus, he is a daily smoker. He was tested negative for Covid on 10/18. At this time labs ordered, IV normal saline, CT pelvis with contrast to evaluate the abscess. Wound culture obtained from the left buttocks drainage. Lactate received from lab 3.0, Care is to be handed off to oncoming provider SAROJ Rangel pending lab results, CT pelvis results and chest x-ray. Flagyl 500 mg IV piggyback and Zosyn IV piggyback ordered. <SAROJ Morales - Last Filed: 10/23/21 18:35> I assumed care of this 56-year-old gentleman from my colleague DANY Neri with CT of the pelvis pending. Patient receiving IV Zosyn and Flagyl. In short, patient diagnosed with pneumonia and cellulitis earlier this week and left the ER AMA twice. Today has a white count of 17.22 lactate of 3.0 glucose 428. Patient received 1 L IV fluid, patient now receiving 1 L of lactated Ringer's, repeat fingerstick of glucose 316 Chest x-ray clear as read by radiology CT imaging of pelvis reveals a large region of subcutaneous air in the left perineum and medial left gluteal region. There is possible extension into the posterior scrotum. Findings are concerning for infection. Correlate with clinical findings to evaluate for Vanessa's gangrene. Case discussed with our surgical team Dr. Tyler who feels as though the patient will likely require a higher level of care and recommends transfer Patient given 4 mg IV morphine. Reports no improvement of his discomfort. Images were pushed to [facility] and I was able to speak with their surgical team at 1757, Dr. Cuellar. He accepts care of the patient but they will call me back with regard to whether he will be directly admitted or go to the ER. I received a call at 1809 from [facility] transfer center, patient will be transferred ER to ER. All appropriate paperwork completed. I answered all questions of the patient and his to the best of my ability before transfer. Patient given 2 mg IV Dilaudid, reports improvement of his discomfort. Medical Records Medical records reviewed: Yes I reviewed the patient's medical records. Imaging Data Radiologic Study: Attestation: I personally reviewed and interpreted this imaging study as follows: Imaging: CT Scan Radiologist's impression: PROCEDURE INFORMATION: Exam: CT Pelvis With Contrast Exam date and time: 10/23/2021 3:16 PM Age: 56 years old Clinical indication: Abcess TECHNIQUE: Imaging protocol: Computed tomography images of the pelvis with intravenous contrast. Contrast material: OMNIPAQUE 350; Contrast volume: 100 ml; Contrast route: INTRAVENOUS (IV); COMPARISON: No relevant prior studies available. FINDINGS: Aorta: There is large atherosclerotic plaque in the distal aorta partially visualized. Stomach and bowel: Visualized small bowel and colon are unremarkable. Appendix: No evidence of appendicitis. Intraperitoneal space: No free air. No significant fluid collection. Vasculature: Calcified plaque noted in the bilateral common iliac arteries. No evidence of aneurysm in this region. Lymph nodes: No enlarged lymph nodes. Urinary bladder: Normal. No mass. Reproductive: Of note, small amounts of air noted extending to the anterior perineum and possibly within the posterior scrotum. Bones/joints: No acute fracture. No dislocation. A focus of sclerosis in the right femoral neck may represent a bone island. Lumbar spine degenerative changes are partially visualized bilateral neural foraminal narrowing spinal canal stenosis. Soft tissues: There is a large region of subcutaneous air seen in the left posterior perineum and medial left gluteal region. No significant fluid seen in this region. ADAM CHIU Preliminary Radiology Report MEDICAL STAFF COORDINATOR (QA) DISCREPANCY? If there is a discrepancy between the preliminary and final interpretation, please notify [facility] via [email or web address]. If you do not have access to our QA portal, call our QA team at [phone] CONFIDENTIALITY STATEMENT This report is intended only for the use of the referring physician, and only in accordance with law, If you received this in error, call [phone] Page 2 of 2 IMPRESSION: Large region of subcutaneous air in the left perineum and medial left gluteal region. There is possible extension into the posterior scrotum. This finding is concerning for infection. Correlate with clinical findings to evaluate for possible Vanessa's gangrene. Thank you for allowing us to participate in the care of your patient. Radiologic Study #2: Attestation: I personally reviewed and interpreted this imaging study as follows: Imaging: X-Ray Radiologist's impression: PROCEDURE INFORMATION: Exam: XR Chest Exam date and time: 10/23/2021 4:04 PM Age: 56 years old Clinical indication: HX of pna TECHNIQUE: Imaging protocol: XR of the chest. Views: 2 views. COMPARISON: CR XR PORTABLE CHEST AP 10/21/2021 4:03 PM FINDINGS: Lungs: No consolidation. Pleural spaces: No pleural effusion. No pneumothorax. Heart/Mediastinum: Unremarkable. No cardiomegaly. Diaphragm: There is elevation of the right hemidiaphragm. Bones/joints: Unremarkable. IMPRESSION: No significant consolidation. Lab Data Lab results reviewed: Yes I reviewed the patient's lab results. Labs: 10/23/21 15:22 Buttock - Left Wound Culture - Pending 10/23/21 15:22 Buttock - Left Gram Stain - Pending Laboratory Tests Range/Units 10/23/21 10/23/21 10/23/21 15:37 15:37 15:37 WBC (4.4-10.8) 10^3/uL 17.22 H RBC (4.36-5.78) 10^6/uL 4.43 Hgb (13.5-17.5) g/dL 15.2 Hct (40.0-50.0) % 40.6 MCV (80-95) fL 91.6 MCH (27.0-33.0) pg 34.3 H MCHC (32.0-36.0) % 37.4 H RDW (11.8-14.1) % 13.1 Plt Count (130-400) 10^3/uL 427 H MPV (8.0-11.0) fL 10.2 Immature Gran % 0.0 Neutrophils % 94.0 Lymphocytes % 4.0 Monocytes % 2.0 Eosinophils % 0.0 Basophils % 0.0 Nucleated RBC % % 0 Absolute Neutrophils (1.2-6.7) 10^3/uL 16.19 H Absolute Lymphocytes (1.2-3.4) 10^3/uL 0.69 L Absolute Monocytes (0.1-0.8) 10^3/uL 0.34 Absolute Eosinophils (0.0-0.7) 10^3/uL 0.00 Absolute Basophils (0.0-0.2) 10^3/uL 0.00 RBC Morphology Normal VBG Lactate (0.6-1.4) mmol/L 3.0 H* Sodium (136-145) mmol/L 132 L Potassium (3.5-5.1) mmol/L 4.5 Chloride (98-107) mmol/L 97 L Carbon Dioxide (21.0-32.0) mmol/L 25.2 Anion Gap (3-11) mmol/L 9.8 BUN (7-18) mg/dL 19 H Creatinine (0.70-1.30) mg/dL 1.1 Estimated GFR/1.73 m2 (mL/min/1.73m2) >= 60.00 Glucose (74-106) mg/dL 428 H Calcium (8.5-10.1) mg/dL 9.0 Magnesium (1.8-2.4) mg/dL 2.1 Total Bilirubin (0.2-1.0) mg/dL 1.6 H AST (15-37) U/L 22 ALT (16-63) U/L 55 Alkaline Phosphatase (46-116) U/L 99 Total Protein (6.4-8.2) g/dL 7.1 Albumin (3.4-5.0) g/dL 2.5 L HPI <Jazlyn Neri - Last Filed: 10/26/21 16:19> General Mode of arrival: ambulatory. Date/Time Provider Initiated Documentation: 10/23/21 14:40. Limitations to Documentation: no limitations. Information obtained by: patient, RN notes reviewed and old records reviewed. HPI Narrative: 56-year-old male presents to the ER for the third time in the last week with chief complaint of left buttock cellulitis and draining abscess. Patient was diagnosed with pneumonia on 18 October and was prescribed Levaquin for 5 days and then left AMA, he then returned again to the ER approximately 48 hours ago and was noted to have a left buttock cellulitis, was prescribed doxycycline and once again left AMA. He presents today with a chief complaint of drainage from his left buttock which began last night. He has been taking the antibiotics and medications as prescribed. Exam he on initial exam he has brown moderate purulent foul-smelling drainage noted from left buttock. He does have a past medical history of pneumonia, strep, hypertension, diabetes mellitus, he is a daily smoker. He was tested negative for Covid on 10/18. Related Data Home Medications Medication Instructions Recorded Confirmed aspirin [Ecotrin Low Strength] 81 mg PO HS tab-cap 03/10/13 10/23/21 albuterol sulfate 90 mcg/actuation 2 puff INHALATION QID PRN #8.5 g 04/01/21 10/23/21 aerosol inhaler glimepiride 4 mg tablet 4 mg PO BID #180 tab-cap 09/12/21 10/23/21 rosuvastatin 40 mg tablet 40 mg PO DAILY #90 tab 09/12/21 10/23/21 sitagliptin 50 mg tablet 50 mg PO DAILY #90 tab 09/12/21 10/23/21 levofloxacin 750 mg PO DAILY #5 tab 10/18/21 10/23/21 prednisone 60 mg PO DAILY #15 tab 10/18/21 10/23/21 doxycycline hyclate 100 mg PO BID #20 cap 10/21/21 10/23/21 Previous Rx's Medication Instructions Recorded albuterol sulfate 90 mcg/actuation 2 puff INHALATION QID PRN #8.5 g 04/01/21 aerosol inhaler glimepiride 4 mg tablet 4 mg PO BID #180 tab-cap 09/12/21 rosuvastatin 40 mg tablet 40 mg PO DAILY #90 tab 09/12/21 sitagliptin 50 mg tablet 50 mg PO DAILY #90 tab 09/12/21 levofloxacin 750 mg PO DAILY #5 tab 10/18/21 prednisone 60 mg PO DAILY #15 tab 10/18/21 doxycycline hyclate 100 mg PO BID #20 cap 10/21/21 Allergies Allergy/AdvReac Type Severity Reaction Status Date / Time metformin AdvReac Intermediate Diarrhea Verified 10/23/21 14:44 General Stated Complaint: Cellulitis FUAD: 3 Review of Systems <Jazlyn Neri - Last Filed: 10/26/21 16:19> All systems reviewed & are unremarkable except as noted in HPI and below Integumentary/Breasts Skin/Breast: Reports furuncle (Drainage from left buttock ) PFS <Jazlyn Neri - Last Filed: 10/26/21 16:19> Active Problem List Pneumonia (Acute) Sepsis (Acute) Cellulitis of buttock, right (Acute) High serum lactate (Acute) Sore throat (viral) (Acute) Uncontrolled diabetes mellitus (Acute) Lung cancer screening declined by patient (Acute) Colonoscopy refused (Acute) Smoker (Acute 01/13/17) Pure hypercholesterolemia (Acute 10/21/12) Morbid obesity (Acute 04/13/13) [place] cardiac risk >20% in next 10 years (Acute 01/13/17) Former smoker (Acute 05/01/15) Essential hypertension (Acute 04/13/13) Diabetes mellitus (Acute 04/13/13) Surgical History Vasectomy Family History Mother Essential hypertension Father Alcohol abuse Social History Smoking/Tobacco Use Status: Current every day Tobacco Type: cigarettes Smoking packs per day: 1 Smoking cigarettes per day: 20.0 Years smoked: 45 Smoking pack-years: 45.00 Smoking risk assessment performed?: Yes Alcohol Intake: former Year quit: 1997 Substance use type: does not use Household members: spouse Housing: house Number of Children: 2 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 Do you feel safe at home: Yes Do you feel safe in your relationship?: Yes Additional Social history: hasn't smoked in 2 weeks Exam <Jazlyn Neri - Last Filed: 10/26/21 16:19> Narrative Exam Narrative: Constitutional: Alert and oriented x3. Appears stated age. Normal body habitus. Head: Normocephalic, no trauma. Eyes: Pupils PERRL, Red reflex noted, EOM's intact. Eyelids symmetrical without lesions, discharge, or swelling. ENT: Bilateral TM's WNL, External ear normal to inspection, no mastoid TTP, swelling, or erythema, Nasal turbinates WNL, no nasal discharge. Normal dentition, Posterior pharynx WNL, no exudate. Chest: RRR, Normal S1, S2, distal pulses intact. Resp: Lungs clear to auscultation bilaterally, no wheezes, rales, or rhonchi. Abdomen: Soft, non-distended, Normoactive bowel sounds all 4 quads. Musculoskeletal: Normal gait, 5/5 strength to all four extremities. Skin: Erythema induration noted to the left buttock, there is a central puncture area with moderate brown foul-smelling drainage. Capillary refill less than 2 sec. Neurologic: Cranial nerves II-XII intact. Alert and oriented x 3. Motor: No deficits noted. Sensory: Intact bilaterally all 4 extremities. Reflexes: DTR's intact bilaterally.. Hematologic/Lymphatic: No ecchymosis, no lymphadenopathy. Course <Jazlyn Neri - Last Filed: 10/26/21 16:19> Vital Signs Vital signs: Vital Signs Temperature 36.3 C L 10/23/21 14:39 Pulse 95 H 10/23/21 14:39 Respiratory Rate 16 10/23/21 14:39 Blood Pressure 116/84 10/23/21 14:39 Pulse Oximetry 95 10/23/21 14:39 Temperature 36.3 C L 10/23/21 14:39 Temperature Source Skin 10/23/21 14:39 Pulse 95 H 10/23/21 14:39 Respiratory Rate 16 10/23/21 14:39 Respiratory Effort 10/23/21 14:44 Blood Pressure 116/84 10/23/21 14:39 Pulse Oximetry 95 10/23/21 14:39 Oxygen Delivery Method Room Air 10/23/21 14:39 Oxygen Flow Rate 0 10/23/21 14:39 Pain Level 0 10/23/21 14:39 Sign Out <Jazlyn Neri - Last Filed: 10/26/21 16:19> Sign Out Data: Sign Out Comment: Pending lab results, CT pelvis with contrast, chest x-ray IV antibiotics ordered. Consider admission. Patient has left AMA x2. Last updated by Jazlyn Neri at 10/23/21 16:06
[2021-10-23] MEDS: Normal Saline 1,000 ML 1000 ML IV (15:47)
[2021-10-23 15:59] LABS: Abs Immature Grans 0.36 10^3/uL (0.0-0.06); HCT 40.6 % (40.0-50.0); HGB 15.2 g/dL (13.5-17.5); MCH 34.3 pg (27.0-33.0); MCHC 37.4 % (32.0-36.0); MCV 91.6 fL (80-95); MPV 10.2 fL (8.0-11.0); Nucleated RBC 0 %; Platelet Count 427 10^3/uL (130-400); RBC 4.43 10^6/uL (4.36-5.78); RDW 13.1 % (11.8-14.1); RDW-SD 39.4 fL; WBC 17.22 10^3/uL (4.4-10.8)
--- NOTE | 2021-10-23 16:00 | DI.RAD_ITS ---
Exam(s) XR CHEST 2V PA LATERAL EXAM: XR CHEST 2V PA LATERAL CLINICAL HISTORY: Hx of PNA. TECHNIQUE: 2D digital imaging was performed. COMPARISON: CR XR CHEST 2V PA LATERAL from 04/02/2021 CR XR CHEST 2V PA LATERAL from 04/02/2021 CR XR PORTABLE CHEST AP from 10/21/2021 FINDINGS: Heart size normal. The mediastinum is not widened. Mild increased markings in the right lung base a yazan the hemidiaphragm noted, slightly more so than previous. Left increased suprahilar markings are noted next are again noted. This is increased from 04/02/2021. IMPRESSION: Left upper lobe infiltrate. Right lung base infiltrate. No pleural effusions. Called by myself to the ER physician 10/23/2021 at 5:55 p.m.. DATA REPOSITORY: RADIATION DOSE DELIVERED:
[2021-10-23] MEDS: Normal Saline Flush 10 ML SYR IVP ×2 (16:14→18:20)
[2021-10-23 16:15] LABS: ALT 55 U/L (16-63); AST 22 U/L (15-37); Albumin 2.5 g/dL (3.4-5.0); Alkaline Phosphatase 99 U/L (46-116); Anion Gap 9.8 mmol/L (3-11); BUN 19 mg/dL (7-18); Bilirubin, Total 1.6 mg/dL (0.2-1.0); CO2 25.2 mmol/L (21.0-32.0); CREATININE 1.1 mg/dL (0.70-1.30); Chloride 97 mmol/L (98-107); Glucose 428 mg/dL (74-106); Magnesium 2.1 mg/dL (1.8-2.4); Potassium 4.5 mmol/L (3.5-5.1); Sodium 132 mmol/L (136-145); Total Protein 7.1 g/dL (6.4-8.2)
[2021-10-23] MEDS: PIPERACILLIN/TAZO 3.375 GM in Normal Saline 50 ML IVPB (16:24)
[2021-10-23 16:34] LABS: Absolute Lymphocyte Count 0.69 10^3/uL (1.2-3.4); Absolute Monocyte Count 0.34 10^3/uL (0.1-0.8); Absolute Neutrophil Count 16.19 10^3/uL (1.2-6.7); Diff Comment Manual Differential; RBC Morphology Normal
--- NOTE | 2021-10-23 17:12 | DI.VRAD_ITS ---
PROCEDURE INFORMATION: Exam: CT Pelvis With Contrast Exam date and time: 10/23/2021 3:16 PM Age: 56 years old Clinical indication: Abcess TECHNIQUE: Imaging protocol: Computed tomography images of the pelvis with intravenous contrast. Contrast material: OMNIPAQUE 350; Contrast volume: 100 ml; Contrast route: INTRAVENOUS (IV); COMPARISON: No relevant prior studies available. FINDINGS: Aorta: There is large atherosclerotic plaque in the distal aorta partially visualized. Stomach and bowel: Visualized small bowel and colon are unremarkable. Appendix: No evidence of appendicitis. Intraperitoneal space: No free air. No significant fluid collection. Vasculature: Calcified plaque noted in the bilateral common iliac arteries. No evidence of aneurysm in this region. Lymph nodes: No enlarged lymph nodes. Urinary bladder: Normal. No mass. Reproductive: Of note, small amounts of air noted extending to the anterior perineum and possibly within the posterior scrotum. Bones/joints: No acute fracture. No dislocation. A focus of sclerosis in the right femoral neck may represent a bone island. Lumbar spine degenerative changes are partially visualized bilateral neural foraminal narrowing spinal canal stenosis. Soft tissues: There is a large region of subcutaneous air seen in the left posterior perineum and medial left gluteal region. No significant fluid seen in this region. IMPRESSION: Large region of subcutaneous air in the left perineum and medial left gluteal region. There is possible extension into the posterior scrotum. This finding is concerning for infection. Correlate with clinical findings to evaluate for possible Vanessa's gangrene. Dictated and Authenticated by: Melissa Arceo MD. Ordering:WILLIAM Hobson MD
--- NOTE | 2021-10-23 17:14 | DI.VRAD_ITS ---
PROCEDURE INFORMATION: Exam: XR Chest Exam date and time: 10/23/2021 4:04 PM Age: 56 years old Clinical indication: HX of pna TECHNIQUE: Imaging protocol: XR of the chest. Views: 2 views. COMPARISON: CR XR PORTABLE CHEST AP 10/21/2021 4:03 PM FINDINGS: Lungs: No consolidation. Pleural spaces: No pleural effusion. No pneumothorax. Heart/Mediastinum: Unremarkable. No cardiomegaly. Diaphragm: There is elevation of the right hemidiaphragm. Bones/joints: Unremarkable. IMPRESSION: No significant consolidation. Dictated and Authenticated by: Melissa Arceo MD. Ordering:WILLIAM Hobson MD
[2021-10-23] MEDS: metroNIDAZOLE 500 MG/100 ML BAG 100 MG IVPB (17:15)
[2021-10-23] MEDS: Lactated Ringers 1,000 ML 1000 ML IV (17:43)
[2021-10-23] MEDS: HYDROmorphone 2 MG/ML VIAL IVP (18:19)
== END 2021-10-23 19:05 | disposition short-term general hospital (02) ==
PROVIDERS: Registered Nurse Emergency; Emergency Provider Physician Assistant; PCP Nurse Practitioner
DX: L03.317 Cellulitis of buttock (principal); L02.31 Cutaneous abscess of buttock; J18.9 Pneumonia, unspecified organism; F17.210 Nicotine dependence, cigarettes, uncomplicated
CPT/HCPCS: 36415; 36416; 80053; 82962; 96361; 96365; 96367; 96375; 99285; 71046; 72193; 83605; 83735; 85025; 87070; 87205; J2543

== ENCOUNTER 2021-10-28 10:00 | Emergency (ER) | payer MEDICAID, SELFPAY ==
[2021-10-28 10:13] VITALS: BP 155/118; PULSE 81; RESP 16; TEMP 36.5; O2SAT 99
--- NOTE | 2021-10-28 10:43 | W.ED.GENAD ---
Discharge Plan Disposition Patient Disposition: HOME Condition: Stable Discharge Details Clinical Impression: Blood bacterial culture positive Primary Care Provider: Rashida Ghosh ED Provider: Elizabeth Barnes Home Meds and New Rx's Prescriptions: Continued glimepiride 4 mg tablet 4 mg PO BID Qty: 180 RF: 3 rosuvastatin 40 mg tablet 40 mg PO DAILY Qty: 90 RF: 3 Januvia 50 mg tablet 50 mg PO DAILY Qty: 90 RF: 0 albuterol sulfate [Proventil HFA] 90 mcg/actuation HFA aerosol inhaler 2 puff inhalation QID PRN (Reason: shortness of breath or wheezing) Qty: 8.5 RF: 0 aspirin [Ecotrin Low Strength] 81 MG tablet,delayed release (DR/EC) 81 mg PO HS RF: 0 amoxicillin-pot clavulanate 875-125 mg tablet PO BID RF: 0 Lantus Solostar U-100 Insulin 100 unit/mL (3 mL) insulin pen 20 unit SUBCUT RF: 0 levofloxacin 750 mg tablet 750 mg PO DAILY Qty: 5 RF: 0 prednisone 20 mg tablet 60 mg PO DAILY Qty: 15 RF: 0 doxycycline hyclate 100 mg capsule 100 mg PO BID Qty: 20 RF: 0 No Action (DME) FreeStyle Test Strip See Rx Instructions .ROUTE .MEDSUPPLY Qty: 100 RF: 6 (DME) blood-glucose meter [FreeStyle Lite Meter] Kit See Rx Instructions .ROUTE .MEDSUPPLY Qty: 1 RF: 0 alcohol swabs [Alcohol Wipes] Pads, Medicated 1 pad topical DAILY Qty: 100 RF: 6 (DME) disposable gloves Misc See Rx Instructions .ROUTE .MEDSUPPLY Qty: 100 RF: 6 Discharge Instructions Additional Instructions: General surgery at [facility] feels that since your source of infection, being the abscess on your buttock, it has been surgically drained, we do not need to worry about the cultures that were positive prior to your surgery. Rather, we will continue to monitor the pending cultures. Please continue with the discharge instructions as advised yesterday by [facility]. If you develop fever/chills, increased pain or other new/worsening symptoms please seek care urgently once again. Please keep upcoming discharge appointments. Referrals: Rashida Ghosh NP [Primary Care Provider] - Discharge Data Discharge Date/Time-TO BE ENTERED AT DEPARTURE: 10/28/21 14:19 Medical Decision Making Patient is a pleasant 56-year-old gentleman presenting today with chief complaint of positive blood cultures. Patient was contacted himself this morning and advised to come in for continued care. Patient was recently treated here subsequently transferred to [facility] for definitive care, of necrotizing left-sided infection. Patient underwent 2 surgical debridements with full excision of necrotic tissue and no recurrence noted on secondary procedure. Patient continues to have open wound, wound care is being completed by patient and significant other. He is to have home health establish today. He states that he has been feeling well since being discharged. His pain is much improved. He denies any fevers or chills. He has been on Augmentin twice daily and has been taking his medication as prescribed. We are contacted by the lab this morning reporting anaerobic gram-positive cocci in his blood cultures. The blood cultures from [facility] are still preliminary findings On exam, patient appears nontoxic. He is laying in prone position for comfort. Wound appears to be healing well. Left open. Small amount of yellow drainage on ABD but no surrounding erythema, warmth or evidence of abscess. Reviewed notes from [facility]. Final blood cultures from their facility are pending. Will obtain baseline labs, repeat culturees and begin on IV abx. Consulted with hospitalist. We discussed need for admission with positive cultures. She advised to speak with surgery at [facility] as he may not require inhouse abx. May be able to continue with his PO. Have requested consulted with general surgery to discuss. Labs reviewed. WBC 12.5, lactatee 1.8. Consulted with Dr. Romo with general surgery. He advised that since patient is feeling clinically well, has had no fevers/chills, and that source of infection has been surgically relieved, we do not need to admit the patient or continue with IV abx. Discussed with patient and his . Will change dressing. He has more PO abx at home, does not need this refilled. Discussed strict return precautions. Repeat cultures pending. All of his questions and concerns were addressed, he is in [facility] this plan. HPI General Mode of arrival: ambulatory. Date/Time Provider Initiated Documentation: 10/28/21 10:43. Limitations to Documentation: no limitations. Information obtained by: patient, family (), RN notes reviewed and old records reviewed. HPI Narrative: Patient is a pleasant 56 year old male presentingt today after being contacted for positive blood cultures. Patient was d/c'ed from [facility] yesterday after undergoing debridements and IV abx for necrotizing gluteal infection. He states he is doing well. Taking his Augmentin. States that his pain is greatly improved. has been helping with dressing changes. Denies fevers/chills. Related Data Home Medications Medication Instructions Recorded Confirmed aspirin [Ecotrin Low Strength] 81 mg PO HS tab-cap 03/10/13 10/28/21 albuterol sulfate 90 mcg/actuation 2 puff INHALATION QID PRN #8.5 g 04/01/21 10/28/21 aerosol inhaler glimepiride 4 mg tablet 4 mg PO BID #180 tab-cap 09/12/21 10/28/21 rosuvastatin 40 mg tablet 40 mg PO DAILY #90 tab 09/12/21 10/28/21 sitagliptin 50 mg tablet 50 mg PO DAILY #90 tab 09/12/21 10/28/21 levofloxacin 750 mg PO DAILY #5 tab 10/18/21 10/28/21 prednisone 60 mg PO DAILY #15 tab 10/18/21 10/28/21 doxycycline hyclate 100 mg PO BID #20 cap 10/21/21 10/28/21 Lantus Solostar U-100 Insulin 20 unit SUBCUT 10/28/21 amoxicillin-pot clavulanate tab PO BID 10/28/21 blood sugar diagnostic #100 ea 10/28/21 blood-glucose meter #1 ea 10/28/21 alcohol swabs 1 pad TOPICAL DAILY #100 ea 11/04/21 disposable gloves #100 ea 11/04/21 Previous Rx's Medication Instructions Recorded albuterol sulfate 90 mcg/actuation 2 puff INHALATION QID PRN #8.5 g 04/01/21 aerosol inhaler glimepiride 4 mg tablet 4 mg PO BID #180 tab-cap 09/12/21 rosuvastatin 40 mg tablet 40 mg PO DAILY #90 tab 09/12/21 sitagliptin 50 mg tablet 50 mg PO DAILY #90 tab 09/12/21 levofloxacin 750 mg PO DAILY #5 tab 10/18/21 prednisone 60 mg PO DAILY #15 tab 10/18/21 doxycycline hyclate 100 mg PO BID #20 cap 10/21/21 blood sugar diagnostic #100 ea 10/28/21 blood-glucose meter #1 ea 10/28/21 alcohol swabs 1 pad TOPICAL DAILY #100 ea 11/04/21 disposable gloves #100 ea 11/04/21 Allergies Allergy/AdvReac Type Severity Reaction Status Date / Time metformin AdvReac Intermediate Diarrhea Verified 10/28/21 10:16 General Stated Complaint: GenMedical FUAD: 2 Review of Systems Constitutional Constitutional: Reports as per HPI, Denies chills and Denies fever(s) Cardiovascular Cardiovascular: Reports as per HPI, Denies chest pain and Denies dyspnea Respiratory Respiratory: Reports as per HPI, Denies cough and Denies dyspnea Gastrointestinal Gastrointestinal: Reports as per HPI Genitourinary Genitourinary: Denies system reviewed and no additional complaints, except as documented (patient denies any change in urinary habits) Musculoskeletal Musculoskeletal: Reports as per HPI Integumentary/Breasts Skin/Breast: Reports as per HPI Neurologic Neurologic: Reports as per HPI [facility] Active Problem List Pneumonia (Acute) Sepsis (Acute) Cellulitis of buttock, right (Acute) High serum lactate (Acute) Sore throat (viral) (Acute) Uncontrolled diabetes mellitus (Acute) Lung cancer screening declined by patient (Acute) Colonoscopy refused (Acute) Smoker (Acute 01/13/17) Pure hypercholesterolemia (Acute 10/21/12) Morbid obesity (Acute 04/13/13) [place] cardiac risk >20% in next 10 years (Acute 01/13/17) Former smoker (Acute 03/23/15) Essential hypertension (Acute 04/13/13) Diabetes mellitus (Acute 04/13/13) Surgical History Vasectomy Family History Mother Essential hypertension Father Alcohol abuse Social History Smoking/Tobacco Use Status: Current every day Tobacco Type: cigarettes Smoking packs per day: 1 Smoking cigarettes per day: 20.0 Years smoked: 45 Smoking pack-years: 45.00 Smoking risk assessment performed?: Yes Alcohol Intake: former Year quit: 1997 Substance use type: does not use Household members: spouse Housing: house Number of Children: 2 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 Do you feel safe at home: Yes Do you feel safe in your relationship?: Yes Additional Social history: hasn't smoked in 2 weeks Exam Const General: cooperative, healthy appearing, comfortable (laying prone, this is more comfortable with his gluteal infection), no acute distress and well developed Nutritional Appearance: well nourished and overweight Orientation: alert and awake HENMT Head: normal to inspection Mouth: moist mucous membranes Resp Effort & Inspection: normal respiratory effort, able to speak in complete sentences and no respiratory distress Auscultation: clear to auscultation bilaterally, no rales, no rhonchi and no wheezes Cardio Rate: regular rate Rhythm: regular rhythm Heart Sounds: S1 normal and S2 normal Back/Spine/Pelvis Back/spine/pelvis image: 1. Area of incision. Small amount of yellow discharge on ABD. No surrounding erythema, warmth. No evidence of recurrence of abscess. Skin Wounds: wounds noted (surgical wound area) Neuro General: patient alert and patient awake Cognition: normal cognition Speech: speech normal Gait: antalgic Psych Appearance: grossly normal and well kempt Mental Status: mental status grossly normal Speech and Movement: speech and movement normal Course Vital Signs Vital signs: Vital Signs Temperature 36.5 C 10/28/21 10:13 Pulse 81 10/28/21 10:13 Respiratory Rate 16 10/28/21 10:13 Blood Pressure 155/118 H 10/28/21 10:13 Pulse Oximetry 99 10/28/21 10:13 Temperature 36.5 C 10/28/21 10:13 Temperature Source Skin 10/28/21 10:13 Pulse 81 10/28/21 10:13 Respiratory Rate 16 10/28/21 10:13 Blood Pressure 155/118 H 10/28/21 10:13 Blood Pressure Position Sitting 10/28/21 10:13 Pulse Oximetry 99 10/28/21 10:13 Pain Level 4 10/28/21 10:13 Lab/Test Results Lab/Test Results: 10/28/21 10:37 Blood Blood Culture - Pending 10/28/21 10:37 Blood Blood Culture - Pending
[2021-10-28 10:44] LABS: Lactate 1.8 mmol/L (0.6-1.4)
[2021-10-28 10:45] LABS: Abs Immature Grans 0.31 10^3/uL (0.0-0.06); Basophils % 0.6; Eosinophils % 2.6; HCT 42.3 % (40.0-50.0); HGB 14.2 g/dL (13.5-17.5); Immature Grans % 2.5; Lymphocytes % 21.1; MCH 29.8 pg (27.0-33.0); MCHC 33.6 % (32.0-36.0); MCV 88.9 fL (80-95); Monocytes % 5.6; Neutrophils % 67.6; Nucleated RBC 0 %; Platelet Count 340 10^3/uL (130-400); RBC 4.76 10^6/uL (4.36-5.78); RDW 12.5 % (11.8-14.1); RDW-SD 40.5 fL; WBC 12.54 10^3/uL (4.4-10.8)
[2021-10-28 10:50] LABS: Absolute Basophil Count 0.08 10^3/uL (0.0-0.2); Absolute Eosinophil Count 0.33 10^3/uL (0.0-0.7); Absolute Lymphocyte Count 2.65 10^3/uL (1.2-3.4); Absolute Neutrophil Count 8.48 10^3/uL (1.2-6.7)
[2021-10-28 11:00] VITALS: RESP 16
[2021-10-28 11:02] LABS: ALT 56 U/L (16-63); AST 37 U/L (15-37); Albumin 2.3 g/dL (3.4-5.0); Alkaline Phosphatase 84 U/L (46-116); Anion Gap 6.1 mmol/L (3-11); BUN 11 mg/dL (7-18); Bilirubin, Total 0.6 mg/dL (0.2-1.0); CO2 28.9 mmol/L (21.0-32.0); CREATININE 0.8 mg/dL (0.70-1.30); Calcium 8.4 mg/dL (8.5-10.1); Chloride 104 mmol/L (98-107); Glucose 157 mg/dL (74-106); Potassium 3.4 mmol/L (3.5-5.1); Sodium 139 mmol/L (136-145); Total Protein 6.7 g/dL (6.4-8.2)
[2021-10-28] MEDS: Normal Saline 1,000 ML 150 ML IV (11:15)
[2021-10-28] MEDS: VANCOMYCIN/WATER (PEG) 2 GM/400 ML BAG IVPB (11:31)
[2021-10-28] MEDS: Insulin Glargine 100 UNITS/ML UNIT 20 UNITS SC (11:44)
[2021-10-28 14:11] VITALS: BP 112/73; PULSE 93; TEMP 36.7; O2SAT 95
== END 2021-10-28 14:19 | disposition home or self-care (01) ==
PROVIDERS: Emergency Provider Physician Assistant; PCP Nurse Practitioner
DX: R78.81 Bacteremia (principal); L02.31 Cutaneous abscess of buttock
CPT/HCPCS: 36415; 36416; 80053; 82962; 87040; 87635; 96361; 96365; 96366; 96372; 99284; 83605; 85025; 99283; J1815

== ENCOUNTER 2022-12-18 02:24 | Outpatient (CLI) | payer MEDICAID, SELFPAY ==
[2022-12-18 09:53] LABS: Abs Immature Grans 0.05 10^3/uL (0.0-0.06); Absolute Basophil Count 0.08 10^3/uL (0.0-0.2); Absolute Eosinophil Count 0.25 10^3/uL (0.0-0.7); Absolute Lymphocyte Count 1.98 10^3/uL (1.2-3.4); Absolute Monocyte Count 0.55 10^3/uL (0.1-0.8); Basophils % 0.8; Eosinophils % 2.5; HCT 45.9 % (40.0-50.0); HGB 15.4 g/dL (13.5-17.5); Immature Grans % 0.5; Lymphocytes % 19.6; MCH 28.6 pg (27.0-33.0); MCHC 33.6 % (32.0-36.0); MCV 85 fL (80-95); MPV 10.1 fL (8.0-11.0); Monocytes % 5.4; Neutrophils % 71.2; Platelet Count 248 10^3/uL (130-400); RBC 5.38 10^6/uL (4.36-5.78); RDW 12.4 % (11.8-14.1); RDW-SD 38.5 fL; WBC 10.11 10^3/uL (4.4-10.8)
[2022-12-18 10:25] LABS: ALT 37 U/L (16-63); AST 19 U/L (15-37); Albumin 3.7 g/dL (3.4-5.0); Alkaline Phosphatase 104 U/L (46-116); Anion Gap 8.5 mmol/L (3-11); BUN 12 mg/dL (7-18); Bilirubin, Total 1.4 mg/dL (0.2-1.0); CO2 26.5 mmol/L (21.0-32.0); Calcium 9.2 mg/dL (8.5-10.1); Calculated LDL 48 mg/dL (<100); Chloride 100 mmol/L (98-107); Cholesterol 131 mg/dL (<200); Glucose 356 mg/dL (74-106); HDL Cholesterol 38 mg/dL (40-60); Potassium 4.4 mmol/L (3.5-5.1); Sodium 135 mmol/L (136-145); Total Protein 7.4 g/dL (6.4-8.2); Triglyceride 226 mg/dL (<150)
[2022-12-18 13:30] LABS: COMMENT (LAB VIEW ONLY) 109.13 mg/dL; Microalb ug/mg Crea 14.7 ug/mg Cr
== END 2022-12-18 02:25 | disposition home or self-care (01) ==
LOC: LBO 02:24
PROVIDERS: PCP Nurse Practitioner; Referring Provider Nurse Practitioner; Visit Provider Nurse Practitioner
DX: I10 Essential (primary) hypertension (principal); E11.9 Type 2 diabetes mellitus without complications; E78.00 Pure hypercholesterolemia, unspecified; J45.909 Unspecified asthma, uncomplicated
CPT/HCPCS: 36415; 80053; 80061; 82043; 82570; 85025

== ENCOUNTER → 2023-07-02 00:44 | Outpatient (CLI) | payer MEDICAID, SELFPAY ==
--- NOTE | 2023-07-02 10:40 | DI.RAD_ITS ---
Exam(s) XR CHEST 2V PA LATERAL EXAM: XR CHEST 2V PA LATERAL CLINICAL HISTORY: cough, R05.9, H/O RECURRENT PNEUMONIA, Z87.01 TECHNIQUE: 2D digital imaging was performed of the chest. Two images were obtained. PA and lateral views were obtained. COMPARISON: CR,XR XR CHEST 2V PA LATERAL from 10/23/2021 FINDINGS: MEDIASTINUM: Normal. HEART: Normal. PULMONARY VASCULATURE: Normal. LUNGS: Clear. PLEURAL SPACE: No pleural effusion or pneumothorax. BONE:Within normal limits for the patient's age. OTHER FINDINGS:Normal. IMPRESSION: No acute pulmonary findings. DATA REPOSITORY: RADIATION DOSE DELIVERED:
== END ==
PROVIDERS: PCP Nurse Practitioner; Visit Provider Nurse Practitioner
DX: Z87.01 Personal history of pneumonia (recurrent) (principal); R05.9 Cough, unspecified
CPT/HCPCS: 71046

== ENCOUNTER 2023-12-09 02:49 | Outpatient (CLI) | payer MEDICAID, SELFPAY ==
[2023-12-09 08:35] LABS: Abs Immature Grans 0.06 10^3/uL (0.0-0.06); Absolute Basophil Count 0.11 10^3/uL (0.0-0.2); Absolute Eosinophil Count 0.16 10^3/uL (0.0-0.7); Absolute Lymphocyte Count 2.09 10^3/uL (1.2-3.4); Absolute Monocyte Count 0.55 10^3/uL (0.1-0.8); Absolute Neutrophil Count 6.84 10^3/uL (1.2-6.7); Basophils % 1.1; Eosinophils % 1.6; HCT 47.7 % (40.0-50.0); HGB 16.1 g/dL (13.5-17.5); Immature Grans % 0.6; Lymphocytes % 21.3; MCH 28.2 pg (27.0-33.0); MCHC 33.8 % (32.0-36.0); MCV 84 fL (80-95); MPV 9.9 fL (8.0-11.0); Monocytes % 5.6; Neutrophils % 69.8; Platelet Count 256 10^3/uL (130-400); RBC 5.71 10^6/uL (4.36-5.78); RDW 12.6 % (11.8-14.1); RDW-SD 37.9 fL; WBC 9.81 10^3/uL (4.4-10.8)
[2023-12-09 09:09] LABS: ALT 34 U/L (16-63); AST 17 U/L (15-37); Albumin 3.7 g/dL (3.4-5.0); Alkaline Phosphatase 113 U/L (46-116); Anion Gap 7.5 mmol/L (3-11); BUN 14 mg/dL (7-18); Bilirubin, Total 1.4 mg/dL (0.2-1.0); CO2 25.5 mmol/L (21.0-32.0); CREATININE 0.9 mg/dL (0.70-1.30); Calcium 9.3 mg/dL (8.5-10.1); Chloride 99 mmol/L (98-107); Estimated GFR 97.78 (mL/min/1.73m2); Glucose 251 mg/dL (74-106); Potassium 4.4 mmol/L (3.5-5.1); Sodium 132 mmol/L (136-145); Total Protein 7.9 g/dL (6.4-8.2)
[2023-12-14 17:19] LABS: Apolipoprotein B, Serum 128 mg/dL; Beta VLDL Cholesterol Not Detected mg/dL (<15); Beta VLDL Triglycerides Not Detected mg/dL (<15); Cholesterol, Total, CDC 226 mg/dL; Chylomicron Cholesterol Not Detected; Chylomicron Triglycerides Not Detected; HDL Cholesterol, CDC 38 mg/dL (>=40); LDL Cholesterol 155 mg/dL; LDL Triglycerides 50 mg/dL (<=50); Lp(a) Cholesterol <5 mg/dL (<5); LpX Not detected; Triglycerides, CDC 190 mg/dL; VLDL Cholesterol 33 mg/dL (<30); VLDL Triglycerides 115 mg/dL (<120)
== END 2023-12-09 02:50 | disposition home or self-care (01) ==
LOC: LBO 02:49
PROVIDERS: PCP Nurse Practitioner; Referring Provider Nurse Practitioner; Visit Provider Nurse Practitioner
DX: E78.00 Pure hypercholesterolemia, unspecified (principal); E11.9 Type 2 diabetes mellitus without complications
CPT/HCPCS: 36415; 80053; 80061; 82172; 82664; 85025

== ENCOUNTER 2024-03-22 01:12 | Emergency (ER) | payer MEDICAID, SELFPAY ==
[2024-03-22] VITALS (23 sets, daily range): BP systolic 133–167; BP diastolic 81–101; PULSE 87–103; RESP 13–25; TEMP 36.4; O2SAT 95–99
--- NOTE | 2024-03-22 01:00 | RT.EKG_ITS ---
APPROVED REPORT Exam: Resting ECG Reason for Exam: chest pain Patient Location: E HR:65 bpm ECG Measurements Heart Rate 65 AXIS DC 198 P 15 QRSd 111 QRS -23 QT 426 T 46 QTc 445 Conclusion Sinus rhythm...normal P axis, V-rate 60- 99 STEMI
--- NOTE | 2024-03-22 01:15 | RT.EKG_ITS ---
APPROVED REPORT Exam: Resting ECG Reason for Exam: chest pain Patient Location: E HR:86 bpm ECG Measurements Heart Rate [address] 163 P 52 QRSd 95 QRS 58 QT 351 T 95 QTc 420 Conclusion Sinus rhythm...normal P axis, V-rate 60- 99 Inferoposterior infarct, acute...ST>.1 inf, <-.1 V1-3 or >.05 V7-9
--- NOTE | 2024-03-22 01:15 | DI.RAD_ITS ---
Exam(s) XR PORTABLE CHEST AP EXAM: XR PORTABLE CHEST AP CLINICAL HISTORY: chest pain TECHNIQUE: 2D digital imaging was performed. COMPARISON: CR XR CHEST 2V PA LATERAL from 07/02/2023 FINDINGS: Exam is limited by poor pulmonary inflation, under penetration and mild motion. There are leads over lying the chest. LUNGS: Grossly clear. No pleural abnormality seen. HEART: Normal size. AORTA: Normal diameter. BONES: Unremarkable for age. Soft tissues: Unremarkable. IMPRESSION: No gross evidence of an acute abnormality. Limited exam. DATA REPOSITORY: RADIATION DOSE DELIVERED:
[2024-03-22] MEDS: Normal Saline 1,000 ML 1000 ML IV (01:30)
--- NOTE | 2024-03-22 01:31 | W.ED.GENAD ---
Discharge Plan Disposition Patient Disposition: Transfer-Acute Inpatient Care Specific Acute Inpt Facility: [facility] Condition: Critical Discharge Details Clinical Impression: ST elevation (STEMI) myocardial infarction Primary Care Provider: Rashida Ghosh ED Provider: Sakina Rosado Home Meds and New Rx's Prescriptions: No Action (DME) disposable gloves Misc See Rx Instructions .ROUTE .MEDSUPPLY Qty: 100 6RF Rx Instructions: For use with ADL's, dressing changes. Size L (DME) OneTouch Ultra Test Strip See Rx Instructions .Route Qty: 100 3RF Rx Instructions: Test FBG AM and before dinner every other day. (DME) blood-glucose meter [FreeStyle Lite Meter] Kit See Rx Instructions .Route Qty: 1 0RF Rx Instructions: Test FBG AM and before dinner every other day (DME) FreeStyle Lite Strips Strip See Rx Instructions .Route Qty: 100 4RF Rx Instructions: Test FBG AM and before dinner every other (DME) lancets [FreeStyle Lancets] 28 gauge misc See Rx Instructions .Route Qty: 100 4RF Rx Instructions: Test FBG AM and before dinner every other day ketoconazole 2 % cream 1 applic topical DAILY Qty: 120 6RF Rx Instructions: Apply to toenails once daily rosuvastatin 10 mg tablet 10 mg PO DAILY MDD 10 mg 90 Days Qty: 90 4RF Rx Instructions: Take one 10 mg tablet by mouth once daily zolpidem 10 mg tablet 10 mg PO QHS PRN (Reason: sleep) Qty: 30 0RF Jardiance 25 mg tablet 25 mg PO DAILY MDD 25 mg 30 Days Qty: 30 12RF Rx Instructions: Take one tablet by mouth once daily as directed. (DME) FreeStyle Angel 2 [place] [facility] [place] See Rx Instructions .Route Qty: 1 0RF Rx Instructions: [place] for FSL2 sensors, use as directed. (DME) FreeStyle Angel 2 Sensor Kit See Rx Instructions .Route Qty: 1 12RF Rx Instructions: Scan AM, Noon, Bedtime, and as needed. alcohol swabs [Alcohol Wipes] Pads, Medicated 1 pad topical DAILY Qty: 100 6RF Rx Instructions: Daily use for blood sugar testing (DME) pen needle, diabetic [BD Ultra-Fine Mini Pen Needle] 31 gauge x 3/16 needle See Rx Instructions .ROUTE .COMPLEX Qty: 100 6RF Dose Instruction: USE DAILY WITH INSULIN PEN Rx Instructions: USE DAILY WITH INSULIN PEN albuterol sulfate [Proventil HFA] 90 mcg/actuation HFA aerosol inhaler 2 puff inhalation QID PRN (Reason: shortness of breath or wheezing) Qty: 8.5 6RF insulin degludec [Tresiba FlexTouch U-200] 200 unit/mL (3 mL) insulin pen 100 unit subcut DAILY MDD 160 units Rx Instructions: Inject 80 units subcutaneously once daily, titrating to 120 units daily as directed. Trulicity 0.75 mg/0.5 mL pen injector 1.5 mg subcut QWEEK Hold Instructions: Home Medication placed on hold at Doctor's office Rx Instructions: Inject 1.5 mg once weekly HPI General Mode of arrival: ambulatory. Date/Time Provider Initiated Documentation: 03/22/24 01:18. Limitations to Documentation: no limitations. Information obtained by: patient. HPI Narrative: 58yo M presenting with chest pain. Onest 2.5 hours ago, 410, substernal pressure. radiates to jaw. no shortness of breath or presnycnope. no similar symptoms in the past. In his usual state of health earlier today prior to onset of symptoms. Related Data Home Medications Medication Instructions Recorded Confirmed alcohol swabs (Alcohol Wipes) 1 pad topical DAILY #100 ea 11/04/21 03/22/24 disposable gloves #100 ea 12/03/21 03/22/24 pen needle, diabetic 31 gauge x #100 ea 02/23/23 03/22/24/16 (BD Ultra-Fine Mini Pen Needle) albuterol sulfate 90 mcg/actuation 2 puff inhalation QID PRN 06/30/23 03/22/24 aerosol inhaler (Proventil HFA) shortness of breath or wheezing #8.5 grams blood sugar diagnostic (FreeStyle #100 ea 12/07/23 03/22/24 Lite Strips) blood sugar diagnostic (OneTouch #100 ea 12/07/23 03/22/24 Ultra Test strips) blood-glucose meter (FreeStyle #1 ea 12/07/23 03/22/24 Lite Meter kit) lancets 28 gauge (FreeStyle #100 ea 12/07/23 03/22/24 Lancets) empagliflozin 25 mg tablet 25 mg PO DAILY 30 days #30 tabs 12/28/23 03/22/24 (Jardiance) flash glucose scanning reader #1 ea 12/28/23 03/22/24 (FreeStyle Angel 2 [place]) flash glucose sensor (FreeStyle #1 ea 12/28/23 03/22/24 Angel 2 Sensor kit) ketoconazole 2 % topical cream 1 applic topical DAILY #120 grams 01/14/24 03/22/24 zolpidem 10 mg tablet 10 mg PO QHS PRN sleep #30 tabs 03/02/24 03/22/24 rosuvastatin 10 mg tablet 10 mg PO DAILY 90 days #90 tabs 03/04/24 03/22/24 dulaglutide 0.75 mg/0.5 mL 1.5 mg subcut QWEEK 03/22/24 03/22/24 subcutaneous pen injector (Trulicity) insulin degludec 200 unit/mL (3 100 unit subcut DAILY 03/22/24 03/22/24 mL) subcutaneous pen (Tresiba FlexTouch U-200 insulin) Previous Rx's Medication Instructions Recorded alcohol swabs (Alcohol Wipes) 1 pad topical DAILY #100 ea 11/04/21 disposable gloves #100 ea 12/03/21 pen needle, diabetic 31 gauge x #100 ea 02/23/2302/05 (BD Ultra-Fine Mini Pen Needle) albuterol sulfate 90 mcg/actuation 2 puff inhalation QID PRN 06/30/23 aerosol inhaler (Proventil HFA) shortness of breath or wheezing #8.5 grams blood sugar diagnostic (FreeStyle #100 ea 12/07/23 Lite Strips) blood sugar diagnostic (OneTouch #100 ea 12/07/23 Ultra Test strips) blood-glucose meter (FreeStyle #1 ea 12/07/23 Lite Meter kit) lancets 28 gauge (FreeStyle #100 ea 12/07/23 Lancets) empagliflozin 25 mg tablet 25 mg PO DAILY 30 days #30 tabs 12/28/23 (Jardiance) flash glucose scanning reader #1 ea 12/28/23 (FreeStyle Angel 2 [place]) flash glucose sensor (FreeStyle #1 ea 12/28/23 Angel 2 Sensor kit) ketoconazole 2 % topical cream 1 applic topical DAILY #120 grams 01/14/24 zolpidem 10 mg tablet 10 mg PO QHS PRN sleep #30 tabs 03/02/24 rosuvastatin 10 mg tablet 10 mg PO DAILY 90 days #90 tabs 03/04/24 Allergies Allergy/AdvReac Type Severity Reaction Status Date / Time No Known Allergies Allergy Unverified 03/22/24 02:03 General Stated Complaint: Chest Pain FUAD: 2 Review of Systems Narrative: see HPI Exam Narrative Exam Narrative: General: Alert, obese Head: Normocephalic, atraumatic Neck: Trachea midline, ?Neck supple. Cardiac: ?RRR, no murmurs appreciated Resp: No respiratory distress. CTAB. Abd: ?Soft, non-distended, nontender Extremities: ?No deformities.? No peripheral edema. Neurologic: GCS 15. ? Moves all extremities freely against gravity Course Vital Signs Vital signs: Vital Signs Temperature 36.4 C L 03/22/24 01:14 Pulse 88 03/22/24 01:14 Respiratory Rate 18 03/22/24 01:14 Blood Pressure 159/101 H 03/22/24 01:14 Pulse Oximetry 99 03/22/24 01:14 Temperature 36.4 C L 03/22/24 01:14 Pulse 88 03/22/24 01:14 Respiratory Rate 18 03/22/24 01:18 Respiratory Effort Normal 03/22/24 01:18 Blood Pressure 159/101 H 03/22/24 01:14 Pulse Oximetry 99 03/22/24 01:14 Oxygen Delivery Method Room Air 03/22/24 01:14 Oxygen Flow Rate 0 03/22/24 01:14 Pain Level 5 03/22/24 01:14 Medical Decision Making 58yo M hx DM presents with 2.5 hours chest pain. No prior cardiac hx. -EKG on arrival inferior STEMI elevations II/III/aVF. Pain 4/10. Slightly hypertensive on arrival vital signs otherwise reassuring. Clear lungs. Ordered ASA, ticagrelor. EKG faxed [facility] [place] and STEMI [place] requested. -Additional history obtained, no hard CI to lysis. Unknown if air transport available at this time, historically very unlikely to be able to get to nearest photofinishing laboratory worker with 120 minutes from arrival here. Will proceed with tnk. Discussed with Dr. Siu [facility]; accepted under Dr. Salvador. Advised changing from ticag to plavix; ordered changed but ticag had already been administered. Added high dose statin. -Labs resulted as below, no actionable abnormalities. Initial troponin 56. -CXR independently reviewed; no focal pneumonia or pneumothorax on my view, VRAD read pending. Hesitant to use nitro with inferior infarct; will give tiny dose of morphine instead. Pain resolved with 2mg IV morphine. Vital signs remain stable. Transported via helicopter. Lab Data Lab results reviewed: Yes I reviewed the patient's lab results. Labs: Laboratory Tests Range/Units 03/22/24 01:27 WBC (4.4-10.8) 10^3/uL 12.96 H RBC (4.36-5.78) 10^6/uL 5.72 Hgb (13.5-17.5) g/dL 16.5 Hct (40.0-50.0) % 49.7 MCV (80-95) fL 87 MCH (27.0-33.0) pg 28.8 MCHC (32.0-36.0) % 33.2 RDW (11.8-14.1) % 13.2 Plt Count (130-400) 10^3/uL 249 MPV (8.0-11.0) fL 9.7 Immature Gran % 0.4 Neutrophils % 75.3 Lymphocytes % 14.7 Monocytes % 6.5 Eosinophils % 2.5 Basophils % 0.6 Nucleated RBC % (0.0-0.3) % 0.0 Absolute Neutrophils (1.2-6.7) 10^3/uL 9.76 H Absolute Lymphocytes (1.2-3.4) 10^3/uL 1.91 Absolute Monocytes (0.1-0.8) 10^3/uL 0.84 H Absolute Eosinophils (0.0-0.7) 10^3/uL 0.32 Absolute Basophils (0.0-0.2) 10^3/uL 0.08 Sodium (136-145) mmol/L 142 Potassium (3.5-5.1) mmol/L 3.8 Chloride (98-107) mmol/L 104 Carbon Dioxide (21.0-32.0) mmol/L 28.5 Anion Gap (3-11) mmol/L 9.5 BUN (7-18) mg/dL 15 Creatinine (0.70-1.30) mg/dL 0.9 Est GFR (CKD-EPI 2020) (mL/min/1.73m2) 97.78 Glucose (74-106) mg/dL 175 H Calcium (8.5-10.1) mg/dL 9.2 Magnesium (1.8-2.4) mg/dL 2.1 Total Bilirubin (0.2-1.0) mg/dL 1.6 H AST (15-37) U/L 18 ALT (16-63) U/L 39 Alkaline Phosphatase (46-116) U/L 113 Troponin I (< or =60) ng/L 56 Total Protein (6.4-8.2) g/dL 7.8 Albumin (3.4-5.0) g/dL 3.9 Quality:SDOH Health Related Social Needs: No Data to Display Critical Care Time Critical Care Time Critical Care Time: Yes Total Critical Care Time: 35 Attestation: Due to a high probability of clinically significant, life threatening deterioration, the patient required my highest level of preparedness to intervene emergently and I personally spent this critical care time directly and personally managing the patient. This critical care time included obtaining a history; examining the patient; pulse oximetry; ordering and review of studies; arranging urgent treatment with development of a management plan; evaluation of patient's response to treatment; frequent reassessment; and, discussions with other providers. This critical care time was performed to assess and manage the high probability of imminent, life-threatening deterioration that could result in multi-organ failure. 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 (Acute) Nicotine dependence (Acute 04/13/13) Type 2 diabetes mellitus (Acute) SARS-CoV-2 positive (Acute ~04/18/22) Surgical wound infection (Acute) 11/06/21 [facility] [place] Surgery note Pneumonia (Acute) Sepsis (Acute) Cellulitis of buttock, right (Acute) High serum lactate (Acute) Cellulitis of buttock, left (Acute) Cellulitis, perineum (Acute) Blood bacterial culture positive (Acute) Sore throat (viral) (Acute) Uncontrolled diabetes mellitus (Acute) Lung cancer screening declined by patient (Acute) Colonoscopy refused (Acute) Smoker (Acute 01/13/17) Pure hypercholesterolemia (Acute 10/21/12) Morbid obesity (Acute 04/13/13) [place] cardiac risk >20% in next 10 years (Acute 01/13/17) 31% 12/2016 Essential hypertension (Acute 04/13/13) Diabetes mellitus (Acute 04/13/13) Medical History Former smoker (03/23/15) Surgical History Vasectomy Family History Mother Essential hypertension Father Alcohol abuse Social History Smoking/Tobacco Use Status: Former Tobacco Use Quit Date: 10/22/21 Tobacco: How many years used: 49 Smoking risk assessment performed?: Yes Alcohol Intake: former Year quit: 1997 Substance use type: does not use Adopted: No Caregiver/Support person: No Foster care: No Household members: spouse Housing: house Number of Children: 2 Communication Needs: None Do you need help understanding health information?: Rarely 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,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
[2024-03-22] MEDS: Aspirin 81 MG CHEW 324 MG CH (01:34)
[2024-03-22 01:36] LABS: Abs Immature Grans 0.05 10^3/uL (0.0-0.06); Absolute Basophil Count 0.08 10^3/uL (0.0-0.2); Absolute Eosinophil Count 0.32 10^3/uL (0.0-0.7); Absolute Lymphocyte Count 1.91 10^3/uL (1.2-3.4); Absolute Monocyte Count 0.84 10^3/uL (0.1-0.8); Absolute Neutrophil Count 9.76 10^3/uL (1.2-6.7); Basophils % 0.6; Eosinophils % 2.5; HCT 49.7 % (40.0-50.0); HGB 16.5 g/dL (13.5-17.5); Immature Grans % 0.4; Lymphocytes % 14.7; MCH 28.8 pg (27.0-33.0); MCHC 33.2 % (32.0-36.0); MCV 87 fL (80-95); MPV 9.7 fL (8.0-11.0); Monocytes % 6.5; Neutrophils % 75.3; Platelet Count 249 10^3/uL (130-400); RBC 5.72 10^6/uL (4.36-5.78); RDW 13.2 % (11.8-14.1); RDW-SD 41.6 fL; WBC 12.96 10^3/uL (4.4-10.8)
[2024-03-22] MEDS: Tenecteplase 50 MG KIT IVP (01:40)
[2024-03-22] MEDS: Ticagrelor 90 MG TAB 180 MG PO (01:40)
[2024-03-22] MEDS: Ondansetron 4 MG/2 ML VIAL (01:47)
[2024-03-22] MEDS: Heparin in 0.45% NaCl 25,000 UNIT/250 ML BAG 10 UNIT IV (01:50)
[2024-03-22 01:53] LABS: ALT 39 U/L (16-63); AST 18 U/L (15-37); Albumin 3.9 g/dL (3.4-5.0); Alkaline Phosphatase 113 U/L (46-116); Anion Gap 9.5 mmol/L (3-11); BUN 15 mg/dL (7-18); Bilirubin, Total 1.6 mg/dL (0.2-1.0); CO2 28.5 mmol/L (21.0-32.0); CREATININE 0.9 mg/dL (0.70-1.30); Calcium 9.2 mg/dL (8.5-10.1); Chloride 104 mmol/L (98-107); Estimated GFR 97.78 (mL/min/1.73m2); Glucose 175 mg/dL (74-106); Magnesium 2.1 mg/dL (1.8-2.4); Potassium 3.8 mmol/L (3.5-5.1); Sodium 142 mmol/L (136-145); Total Protein 7.8 g/dL (6.4-8.2); Troponin I 56 ng/L (< or =60)
[2024-03-22] MEDS: Atorvastatin 40 MG TAB 80 MG PO (02:00)
[2024-03-22] MEDS: MORPHine 10 MG/ML VIAL 2 MG IVP (02:16)
--- NOTE | 2024-03-22 02:31 | DI.VRAD_ITS ---
PROCEDURE INFORMATION: Exam: XR Chest Exam date and time: 03/22/2024 1:37 AM Age: 58 years old Clinical indication: Chest pressure; Patient HX: Chest pain, pressure TECHNIQUE: Imaging protocol: Radiologic exam of the chest. Views: 1 view. COMPARISON: CR XR CHEST 2V PA LATERAL 07/02/2023 10:26 AM FINDINGS: Lungs: Low lung volumes. Mild pulmonary vascular congestion. Pleural spaces: No large pleural effusion seen. Heart/Mediastinum: Borderline enlarged cardiac silhouette. Diaphragm: Elevated right hemidiaphragm. Bones/joints: Grossly unremarkable. IMPRESSION: Borderline enlarged cardiac silhouette with mild pulmonary vascular congestion. Findings may reflect low lung volumes and/or mild heart failure. Dictated and Authenticated by: Marce Tyson MD. Ordering:HILTON Presley MD
[2024-03-22 03:14] LABS: Troponin I 400 ng/L (< or =60)
--- NOTE | 2024-03-22 09:49 | NUR.NOTE ---
Accessed chart to determine EKG orders and the report in the MAR. Nursing Note:
--- NOTE | 2024-03-24 07:01 | NUR.NOTE ---
Accessed chart to delete the duplicate order for EKG. Nursing Note:
== END 2024-03-22 02:46 | disposition short-term general hospital (02) ==
PROVIDERS: Emergency Provider Student in an Organized Health Care Education/Training Program; PCP Nurse Practitioner
DX: I21.3 ST elevation (STEMI) myocardial infarction of unspecified site (principal); I10 Essential (primary) hypertension; E78.5 Hyperlipidemia, unspecified; E11.9 Type 2 diabetes mellitus without complications; Z79.4 Long term (current) use of insulin; Z79.84 Long term (current) use of oral hypoglycemic drugs; Z79.85 Long-term (current) use of injectable non-insulin antidiabetic drugs; Z87.891 Personal history of nicotine dependence
CPT/HCPCS: 80053; 93005; 96365; 99285; 71045; 83735; 84484; 85025; 93010; J1644; J2270; J2405; J3101; J3490

== ENCOUNTER 2024-04-12 05:11 | Outpatient (CLI) | payer MEDICAID, SELFPAY ==
[2024-04-12 14:13] LABS: Anion Gap 10.4 mmol/L (3-11); BUN 11 mg/dL (7-18); CO2 26.6 mmol/L (21.0-32.0); CREATININE 0.9 mg/dL (0.70-1.30); Calcium 9.4 mg/dL (8.5-10.1); Calculated LDL 81 mg/dL (<100); Chloride 106 mmol/L (98-107); Cholesterol 149 mg/dL (<200); Estimated GFR 97.17 (mL/min/1.73m2); Glucose 108 mg/dL (74-106); HDL Cholesterol 43 mg/dL (40-60); Potassium 3.8 mmol/L (3.5-5.1); Sodium 143 mmol/L (136-145); Triglyceride 125 mg/dL (<150)
== END 2024-04-12 05:12 | disposition home or self-care (01) ==
LOC: LBO 05:11
PROVIDERS: Emergency Medicine; PCP Nurse Practitioner; Visit Provider Nurse Practitioner
DX: Z95.5 Presence of coronary angioplasty implant and graft (principal); I10 Essential (primary) hypertension
CPT/HCPCS: 36415; 80048; 80061

== ENCOUNTER 2024-11-18 08:00 | Outpatient (CLI) | payer BC, SELFPAY ==
--- NOTE | 2024-11-18 08:00 | RT.EKG_ITS ---
APPROVED REPORT Exam: Resting ECG Reason for Exam: CAD Patient Location: O HR:67 bpm ECG Measurements Heart Rate 67 AXIS DE 153 P 44 QRSd 107 QRS -5 QT 401 T -13 QTc 424 Conclusion Sinus rhythm...normal P axis, V-rate 50- 99 Normal Electrocardiogram Baseline wander in lead(s) V1
== END 2024-11-18 08:01 | disposition home or self-care (01) ==
LOC: DI.CARD 08:01
PROVIDERS: PCP Nurse Practitioner; Visit Provider Internal Medicine Cardiovascular Disease
DX: Z95.5 Presence of coronary angioplasty implant and graft (principal); I25.10 Atherosclerotic heart disease of native coronary artery without angina pectoris
CPT/HCPCS: 93010

== ENCOUNTER 2024-12-26 01:15 | Outpatient (CLI) | payer BC, SELFPAY ==
[2024-12-26 09:51] LABS: Abs Immature Grans 0.04 10^3/uL (0.0-0.06); Absolute Basophil Count 0.09 10^3/uL (0.0-0.2); Absolute Eosinophil Count 0.36 10^3/uL (0.0-0.7); Absolute Lymphocyte Count 2.14 10^3/uL (1.2-3.4); Absolute Monocyte Count 0.51 10^3/uL (0.1-0.8); Absolute Neutrophil Count 6.12 10^3/uL (1.2-6.7); Eosinophils % 3.9 %; HCT 48.3 % (40.0-50.0); Immature Grans % 0.4 %; Lymphocytes % 23.1 %; MCH 29.5 pg (27.0-33.0); MCHC 33.1 % (32.0-36.0); MCV 89 fL (80-95); MPV 10.4 fL (8.0-11.0); Monocytes % 5.5 %; Neutrophils % 66.1 %; Platelet Count 189 10^3/uL (130-400); RBC 5.43 10^6/uL (4.36-5.78); RDW 12.3 % (11.8-14.1); RDW-SD 39.9 fL; WBC 9.26 10^3/uL (4.4-10.8)
[2024-12-26 10:11] LABS: ALT 42 U/L (16-63); AST 19 U/L (15-37); Albumin 3.7 g/dL (3.4-5.0); Alkaline Phosphatase 129 U/L (46-116); Anion Gap 8.6 mmol/L (3-11); BUN 18 mg/dL (7-18); Bilirubin, Total 1.65 mg/dL (0.2-1.0); CO2 26.4 mmol/L (21.0-32.0); CREATININE 0.8 mg/dL (0.70-1.30); Calcium 8.9 mg/dL (8.5-10.1); Chloride 108 mmol/L (98-107); Estimated GFR 100.69 (mL/min/1.73m2); Glucose 149 mg/dL (74-106); Potassium 4.5 mmol/L (3.5-5.1); Sodium 143 mmol/L (136-145); Total Protein 7.5 g/dL (6.4-8.2)
[2024-12-27 09:12] LABS: Lyme Ab w Rflx to Lyme Confirm Negative (Negative)
[2024-12-27 12:50] LABS: ANA Interpretation Negative (Negative)
[2024-12-28 23:50] LABS: Anaplasma phagocytophilum Negative (Negative); B. miyamotoi PCR Negative (Negative); Babesia divergens/MO-1 Negative (Negative); Babesia duncani Negative (Negative); Babesia microti Negative (Negative); Ehrlichia chaffeensis Negative (Negative); Ehrlichia ewingii/canis Negative (Negative); Ehrlichia muris eauclairensis Negative (Negative)
[2024-12-30 16:30] LABS: Apolipoprotein B, Serum 99 mg/dL; Beta VLDL Cholesterol Not Detected mg/dL (<15); Beta VLDL Triglycerides Not Detected mg/dL (<15); Cholesterol, Total, CDC 171 mg/dL; Chylomicron Cholesterol Not Detected; Chylomicron Triglycerides Not Detected; HDL Cholesterol, CDC 40 mg/dL (>=40); Interpretation Normal; LDL Cholesterol 115 mg/dL; LDL Triglycerides 44 mg/dL (<=50); Lp(a) Cholesterol <5 mg/dL (<5); LpX Not detected; Triglycerides, CDC 112 mg/dL; VLDL Cholesterol 16 mg/dL (<30); VLDL Triglycerides 52 mg/dL (<120)
== END 2024-12-26 01:16 | disposition home or self-care (01) ==
PROVIDERS: PCP Nurse Practitioner; Referring Provider Nurse Practitioner; Visit Provider Nurse Practitioner
DX: E11.9 Type 2 diabetes mellitus without complications (principal); Z95.5 Presence of coronary angioplasty implant and graft; E78.00 Pure hypercholesterolemia, unspecified; E66.01 Morbid (severe) obesity due to excess calories; M79.643 Pain in unspecified hand; M25.649 Stiffness of unspecified hand, not elsewhere classified; R20.9 Unspecified disturbances of skin sensation; E11.51 Type 2 diabetes mellitus with diabetic peripheral angiopathy without gangrene; I70.209 Unspecified atherosclerosis of native arteries of extremities, unspecified extremity
CPT/HCPCS: 36415; 80053; 80061; 87798; 82172; 82664; 85025; 86038; 86618

== ENCOUNTER 2025-02-15 16:08 | Outpatient (CLI) | payer BC, SELFPAY ==
--- NOTE | 2025-02-15 15:00 | DI.RAD_ITS ---
Exam(s) XR SHOULDER RT COMPLETE 2+V EXAM: XR SHOULDER RT COMPLETE 2+V CLINICAL HISTORY: RIGHT SHOULDER PAIN. TECHNIQUE: 2D digital imaging was performed. Five views. COMPARISON: No exams were available for comparison FINDINGS: BONES: No acute fracture is present. No bony destructive lesion is seen. Spurring at the greater tub erosity. JOINTS: No dislocation present. Spurring from the AC joint and glenoid. Glenohumeral joint space is maintained SOFT TISSUE: Normal. IMPRESSION: Degenerative changes of the AC joint and glenohumeral joint. DATA REPOSITORY: RADIATION DOSE DELIVERED:
--- NOTE | 2025-02-15 15:00 | DI.RAD_ITS ---
Exam(s) XR SHOULDER LT COMPLETE 2+V EXAM: XR SHOULDER LT COMPLETE 2+V CLINICAL HISTORY: LEFT SHOULDER PAIN. TECHNIQUE: 2D digital imaging was performed. Three views. COMPARISON: CR XR SHOULDER RT COMPLETE 2+V from 02/15/2025 FINDINGS: BONES: No acute fracture is present. No bony destructive lesion is seen. Some spurring noted at grea ter tuberosity. JOINTS: No dislocation present. The glenohumeral joint space is maintained. No significant periarti cular spurring. AC joints shows prominent spurring SOFT TISSUE: Normal. IMPRESSION: Degenerative changes of the AC joint. DATA REPOSITORY: RADIATION DOSE DELIVERED:
== END 2025-02-15 16:09 | disposition home or self-care (01) ==
LOC: DIORS 16:08
PROVIDERS: PCP Nurse Practitioner; Visit Provider Student in an Organized Health Care Education/Training Program
DX: M19.012 Primary osteoarthritis, left shoulder (principal); M19.011 Primary osteoarthritis, right shoulder
CPT/HCPCS: 73030

== ENCOUNTER 2025-03-29 00:51 | Outpatient (CLI) | payer MEDICAID, SELFPAY ==
--- NOTE | 2025-03-29 06:30 | DI.MRI_ITS ---
Exam(s) MR UPPER JOINT RT WO EXAM: MR UPPER JOINT RT WO CLINICAL HISTORY: R SHOULDER PAIN,rt rotator cuff tear, m75.101. TECHNIQUE: Multiplanar multisequence MRI was performed. COMPARISON: Plain films 15 February 2025 FINDINGS: The exam is limited by motion artifact. The sagittal sequences could not be performed. The patient was in pain during the examination. BONES: There is no fracture or contusion pattern. JOINTS:The acromioclavicular joint shows [id number] degenerative changes with a small amount of fluid.. The glenohumeral joint shows a small effusion. TENDONS: Supraspinatus: Tear with retraction of approximately 1 cm. Likely complete tear. Infraspinatus: Unremarkable. Subscapularis: Question of thickening but no visible tear. Teres Minor: Unremarkable. Biceps and Brutus: Unremarkable. MUSCLES: Significant atrophy of the teres minor and latissimus dorsi muscles greater no significant a trophy of the supraspinatus. GLENOID LABRUM: Unremarkable on this noncontrast examination. SOFT TISSUES: Unremarkable. BURSAE: Subacromial and subdeltoid bursae shows a small amount of fluid. There is fluid in the subc oracoid bursa.. IMPRESSION: Limited exam due to motion and lack of sagittal sequences. There appears to be a full-thickness tear of the supraspinatus tendon. DATA REPOSITORY:
== END 2025-03-29 01:11 ==
LOC: DI 00:51
PROVIDERS: PCP Nurse Practitioner; Visit Provider Student in an Organized Health Care Education/Training Program
DX: M75.121 Complete rotator cuff tear or rupture of right shoulder, not specified as traumatic (principal)
CPT/HCPCS: 73221

== ENCOUNTER → 2025-10-09 01:34 | Outpatient (CLI) | payer MEDICAID, SELFPAY ==
--- NOTE | 2025-10-09 08:30 | DI.MRI_ITS ---
Exam(s) MR UPPER JOINT LT WO EXAM: MR UPPER JOINT LT WO CLINICAL HISTORY: L SHOULDER PAIN,lt rotator cuff tear, m75.102 TECHNIQUE: Multiplanar multisequence MRI of the shoulder was performed. Patient was apparently only able to tolerate the 1st to sequences which were both axials. There are no coronal or sagittal sequences. Therefore this is an incomplete exam COMPARISON: CR XR SHOULDER LT COMPLETE 2+V from 02/15/2025 MR MR UPPER JOINT RT WO from 10/09/2025 FINDINGS: This is an incomplete study and cannot be accurately dictated. Only axial sequences were obtained. The patient will have to return for a 6 sequence study IMPRESSION: 1. Incomplete study. 2. 3. DATA REPOSITORY:
--- NOTE | 2025-10-09 08:30 | DI.MRI_ITS ---
Exam(s) MR UPPER JOINT RT WO EXAM: MR UPPER JOINT RT WO CLINICAL HISTORY: R SHOULDER PAIN,m25.511 TECHNIQUE: Multiplanar multisequence MRI of the shoulder was performed. COMPARISON: CR XR SHOULDER LT COMPLETE 2+V from 02/15/2025 CR XR SHOULDER RT COMPLETE 2+V from 02/15/2025 MR MR UPPER JOINT RT WO from 03/29/2025 FINDINGS: Some motion artifact evident. MARROW:There is no evidence of fracture, Hill-Sachs deformity, nor ominous osseous lesions. GLENOHUMERAL JOINT: Small amount of increased joint fluid. There are no obvious loose intra-articular bodies. There are no degenerative subarticular cysts.. ROTATOR CUFF MECHANISM: AC JOINT/ACROMIUM: There are no degenerative changes in the AC joint with some impingement at this level.. There is no evidence of os acromiale. Supraspinatus: There is a full-thickness tear of the supraspinatus tendon approximately 1 cm above the greater tuberosity. There is thin line of fluid signal traversing the entire tendon at this level. No obvious muscle belly atrophy Infraspinatus: Intact. No evidence of tear nor muscle atrophy. Teres Minor: Intact. No evidence of tear nor muscle atrophy. Subscapularis/anterior cuff: There is significant tendinitis-tendinosis signal. Motion artifact of this level. BICEPS TENDON: Exhibits normal position within the intertubercular groove. No evidence of tear at this level. There is some fluid in the tendon sheath. No loose bodies in the tendon sheath. The intra-articular aspect of the biceps tendon exhibits some signal abnormality but possibly related to magic angle artifact.. LABRUM: There are no obvious labral tears identified. Also no evidence of paralabral cyst. IMPRESSION: 1. Compared to the prior MRI scan of March 2025 there is again noted a thin full- thickness tear of the supraspinatus tendon. No muscle atrophy evident. There is impingement at the level the AC joint. 2. There is tendinosis signal evident in the subscapularis/anterior cuff. 3. No evidence of labral tears nor significant tearing of the biceps tendon. 4. Degenerative changes in the glenohumeral joint. Small amount of increased joint fluid which extends down the biceps tendon sheath. There are no calcified loose intra-articular bodies evident. DATA REPOSITORY:
== END ==
LOC: DI 01:38
PROVIDERS: PCP Nurse Practitioner; Visit Provider Student in an Organized Health Care Education/Training Program
DX: M25.511 Pain in right shoulder (principal); M75.102 Unspecified rotator cuff tear or rupture of left shoulder, not specified as traumatic
CPT/HCPCS: 73221

== ENCOUNTER → 2025-10-30 00:47 | Outpatient (CLI) | payer MEDICAID, SELFPAY ==
--- NOTE | 2025-10-30 06:30 | DI.CTLCSR_ITS ---
Exam(s) CT CHEST LUNG CANCER SCREEN EXAM: CT CHEST LUNG CANCER SCREEN CLINICAL HISTORY: Screening for lung cancer,SMOKER, NICOTINE DEPENDENT,F17.210 TECHNIQUE: Imaging Protocol: Axial computed tomography images with coronal and sagittal reformatted images were created and reviewed. Low dose screening protocol. COMPARISON: CT CT CHEST PE CTA from 10/18/2021 CR,XR XR PORTABLE CHEST AP from 03/22/2024 FINDINGS: Tracheobronchial tree: No bronchiectasis or mucus plugging. Mediastinum and Noreen: No dominant adenopathy or fluid collection. Pulmonary parenchyma: No consolidation or dominant measurable mass. No visible emphysematous changes. No significant interstitial changes. Lung Nodules: None. Pleura: No effusion. No pneumothorax. Heart: The heart is not dilated. Stents and coronary artery calcifications are seen. No pericardial effusion. Aorta: Thoracic aorta non-dilated. Upper abdomen: Cholelithiasis. Bones: Prominent flowing osteophytes in the thoracic spine consistent with DISH. Soft Tissues: Unremarkable. IMPRESSION: No suspicious pulmonary nodules. Lung RADS Cat 1 - Negative: No nodules and definitely benign nodules Lung-RADS 1.0 CATEGORIES: Category 0 - Prior chest CT exam(s) being located for comparison. Category 1 - Annual screening in 12 months. No nodules or definitely benign nodules. Category 2 - Annual screening in 12 months. Benign appearance. Nodules with low likelihood of becoming active cancer. Category 3 - 6-month follow-up. Probably benign. Short-term follow-up suggested. Nodules with low likelihood of becoming active cancer. Category 4A - 3-month follow-up and CT/PET if >8 mm in size. Suspicious finding. Findings which require additional testing. Category 4B - Findings which require additional testing and tissue sampling. Category 4X - Category 3 or 4 nodules with additional features or imaging findings that increases the suspicion of malignancy. Modifier S- Potentially clinically significant findings (non lung cancer) RADIATION DOSE DELIVERED: 131.56mGy.cm Total DLP DATA REPOSITORY: All CT scans at this facility are submitted to the National Radiology Data Registry (NRDR) Dose Index Registry (DIR) with the [employer] (A[employer]). RADIATION OPTIMIZATION: All CT scans at this facility use at least one of these dose optimization techniques: automated exposure control; mA and/or kV adjustment per patient size (includes targeted exams where dose is matched to clinical indication); or iterative reconstruction.
== END ==
LOC: DI 00:47
DX: F17.210 Nicotine dependence, cigarettes, uncomplicated (principal); Z12.2 Encounter for screening for malignant neoplasm of respiratory organs
CPT/HCPCS: 71271